=== PATIENT | female | born 1985 | race Caucasian/White ===

== ENCOUNTER → 2020-02-03 09:48 | Outpatient (BNVA) | payer MEDICAID, SELFPAY | PROVIDERS: Family Provider Pediatrics Adolescent Medicine; Visit Provider Nurse Practitioner | DX: J02.9 Acute pharyngitis, unspecified (principal) | CPT/HCPCS: 87071; 87880 ==

== ENCOUNTER → 2021-02-04 12:09 | Outpatient (BNVA) | payer BC, MEDICAID, SELFPAY | PROVIDERS: Family Provider Pediatrics Adolescent Medicine; PCP Nurse Practitioner; Visit Provider Nurse Practitioner | DX: Z12.4 Encounter for screening for malignant neoplasm of cervix (principal); R60.0 Localized edema | CPT/HCPCS: 88175 ==

== ENCOUNTER → 2021-05-09 15:07 | Outpatient (BNVA) | payer BC, MEDICAID, SELFPAY | PROVIDERS: Family Provider Pediatrics Adolescent Medicine; PCP Nurse Practitioner; Visit Provider Nurse Practitioner Family | DX: Z20.822 Contact with and (suspected) exposure to COVID-19 (principal) | CPT/HCPCS: 87635 ==

== ENCOUNTER 2021-05-12 17:34 | Emergency (ER) | payer BC, MEDICAID, SELFPAY ==
[2021-05-12 17:57] VITALS: BP 93/67; PULSE 106; RESP 20; TEMP 37.1; O2SAT 95; BMI 36.1
--- NOTE | 2021-05-12 18:33 | XRR_ITS ---
PROCEDURE INFORMATION: Exam: XR Chest Exam date and time: 05/12/2021 6:33 PM Age: 35 years old Clinical indication: Dyspnea and shortness of breath; Patient HX: Covid +, SOB, chest tightness, sore throat, body aches; Additional info: Covid 19, dyspnea TECHNIQUE: Imaging protocol: XR of the chest. Views: 1 view. COMPARISON: No relevant prior studies available. FINDINGS: Lungs: Patchy ground-glass opacities in the lung bases and central right lung. Pleural spaces: Unremarkable. No pleural effusion. No pneumothorax. Heart/Mediastinum: Unremarkable. No cardiomegaly. Bones/joints: Unremarkable. Soft tissues: Nipple piercings. XR/XR chest 1V portable [id number] IMPRESSION: 1. Multilobar ground-glass opacities, consistent with COVID-19 pneumonia.
--- NOTE | 2021-05-12 18:35 | ED_ITS ---
HPI - SOB/Dyspnea General: Chief Complaint: Shortness of Breath/Dyspnea Stated Complaint: SOB/COVID + Time Seen by Provider: 05/12/21 18:33 History of Present Illness: HPI Narrative: 35-year-old female comes in today with complaints of shortness of breath and COVID-19. Patient reports since April 25 she has been ill. Patient was first treated for a asthma flare with minimal to no relief. Patient was tested on the and it was reported she had a positive COVID-19 test then. Patient appears mildly unwell but not toxic. Patient does have some mild shortness of breath. MD elicited complaint: shortness of breath Pertinent past history: asthma Onset (ago): day(s) Context: recent illness Severity: moderate Exacerbating factors: exertion Relieving factors: rest Known history of: asthma and other (COVID-19) Associated symptoms: Reports nausea Treatment prior to arrival: other (Steroid) Review of Systems General: Reports: 10 or more systems reviewed and unremarkable except in HPI and below Resp: Reports: dyspnea GI: Reports: nausea PFSH ED PFSH: Medical History (Updated 05/12/21 @ 20:09 by TIANA Turner) Asthma Seasonal allergic rhinitis due to pollen Surgical History History of section History of cholecystectomy Family History Other Diabetes Hypertension Denies family history of Chronic kidney disease (CKD) Cancer Social History Smoking and tobacco status: never smoked Second hand smoke exposure: No Smoking risk assessment/counseling performed?: No Alcohol intake: current Alcohol intake frequency: holidays/special occasions only Desire information about alcohol rehabilitation?: No Counseling given: No Desire information about substance/drug rehabilitation?: No Counseling given: No Adopted: No Caregiver/support person: No Lives independently: Yes Household members: children Housing: House Marital status: Single Number of children: 3 service: No Current occupational status: unemployed Current occupational exposures/hazards: No Pets and animals: No History of recent travel: No Current gender identity: Female Female Reproductive History: Date of last menstrual period: 04/04/21 Physical Exam Const: COMMON NORMALS: no acute distress and patient oriented x3 GENERAL APPEARANCE: cooperative HENMT: COMMON NORMALS: normocephalic and Normal external nose present HEAD & SCALP: normal to inspection and normocephalic NOSE: Normal external nose present MOUTH: Normal oral and palatal mucosa present Eye: GENERAL EYE: appearance normal, both eyes and all related structures Neck/C-Spine: COMMON NORMALS: full ROM Chest: COMMONS NORMALS: normal inspection of the chest Resp: COMMON NORMALS: normal respiratory effort EFFORT & INSPECTION: Yes able to speak in complete sentences AUSCULTATION: crackles Laterality: left (Posterior lower) Cardio: COMMON NORMALS: regular rate and regular rhythm RATE: regular rate RHYTHM: regular rhythm GI: COMMON NORMALS: non-tender Back/Pelvis: COMMON NORMALS: thoracic and lumbar spine normal to inspection Extremity: COMMON NORMALS: normal to inspection Neuro: COMMON NORMALS: patient oriented x3 and moves all extremities Psych: COMMON NORMALS: mental status grossly normal and cooperative Skin: COMMON NORMALS: no rashes or lesions noted GENERAL SKIN EXAM: no rashes or lesions noted Course Vital Signs: Vital signs: Vital Signs Temperature 98.8 F 05/12/21 17:57 Pulse Rate 93 05/12/21 20:21 Respiratory Rate 22 H 05/12/21 20:21 Blood Pressure 107/76 05/12/21 20:21 Pulse Oximetry 96 05/12/21 20:21 MDM - SOB/Dyspnea MDM Narrative: Medical decision making narrative: Patient comes in today for concerns of increased shortness of breath. Patient has been ill since 25 April. Patient was seen on the and diagnosed with COVID-19. Patient comes in today due to increasing shortness of breath. On exam patient has some crackles in left lung mills. Skin is warm and dry. Vital signs are normal. Pulse oxygen is running in the low 90s. Differential diagnosis pneumonia due to COVID-19, obesity, asthma exacerbation, respiratory failure. Chest x-ray confirms pneumonia. Laboratory values did note some dehydration. Patient was given 2 L of IV fluids with improvement in symptoms. Patient was prescribed dexamethasone 6 mg twice a day for next 5 days. Patient was also instructed to use her albuterol routinely. And home oxygen was supplied due to patient's mild hypoxia and pneumonia. Patient reported understanding of care plan and need for follow-up or return to the ER. Lab Data: Labs: Lab Results 05/12/21 05/12/21 Range/Units 19:00 19:00 WBC 7.1 (4.0-10.0) 10^3/ uL RBC 5.58 H (4.1-5.3) 10^6/u L Hgb 13.5 (11.5-15.3) g/dL Hct 41.4 (37.0-47.0) % MCV 74.2 L (81-99) fL MCH 24.2 L (28.0-34.0) pg MCHC 32.6 (30.0-36.0) g/dL RDW 14.5 (12.1-15.1) % Plt Count 183 (130-400) 10^3/c mm MPV 10.4 (7.4-10.4) fL Neut % (Auto) 77.9 % Lymph % (Auto) 16.8 % Canadian % (Auto) 4.8 % Eos % (Auto) 0.0 % Baso % (Auto) 0.1 % Neut # (Auto) 5.50 (1.8-7.7) 10^3/u L Lymph # (Auto) 1.2 (0.8-4.8) 10^3/u L Canadian # (Auto) 0.3 (0.2-0.9) 10^3/u L Eos # (Auto) 0.0 (0.0-0.8) 10^3/u L Baso # (Auto) 0.0 (0.0-0.1) 10^3/u L Nucleated RBC % (a uto) 0 % Nucleated RBCs # 0.0 /100WBC Sodium 135 L (136-145) mmol/L Potassium 3.0 L (3.5-5.1) mmol/L Chloride 93 L (98-107) mmol/L Carbon Dioxide 25 (22-29) mmol/L Anion Gap 20.0 H (5-19) BUN 14 (6-20) mg/dL Creatinine 0.9 (0.5-0.9) mg/dL GFR Calculation 71.3 L (90-130) mL/min Glucose 129 H (65-115) mg/dL Calculated Osmolal ity 282 L (285-295) mOsm/k g Calcium 8.5 (8.5-10.5) mg/dL Total Bilirubin 0.5 (0.15-1.2) mg/dL AST 41 H (0-32) U/L ALT 48 H (0-33) U/L Alkaline Phosphata se 126 H (35-105) IU/L Total Protein 6.6 (6.6-8.7) g/dL Albumin 4.1 (3.5-5.2) g/dL Globulin 2.5 (1.3-4.6) g/dL Discharge Plan Discharge Patient Disposition: Home Clinical Impression: Pneumonia due to 2019 novel coronavirus Condition: Stable Prescriptions: New dexamethasone 6 mg tablet 6 mg PO BID Qty: 14 RF: 0 ondansetron HCl 4 mg tablet 4 mg PO Q8H PRN (Reason: nausea and vomiting) Qty: 10 RF: 0 No Action montelukast [Singulair] 10 mg tablet 10 mg PO DAILY Qty: 30 RF: 5 albuterol sulfate [ProAir HFA] 90 mcg/actuation HFA aerosol inhaler 2 puff INHALATION QID PRN (Reason: shortness of breath or wheezing) Qty: 18 RF: 5 loratadine [Claritin] 10 mg tablet 10 mg PO DAILY 30 Days Qty: 30 RF: 5 Dulera 100-5 mcg/actuation HFA aerosol inhaler 2 puff inhalation Q12H Qty: 8.8 RF: 5 fluoxetine [Prozac] 20 mg capsule 20 mg PO DAILY Qty: 30 RF: 2 hydrochlorothiazide 12.5 mg capsule 12.5 mg PO DAILY Qty: 30 RF: 2 Discharge Orders: Discharge ED (Routine); Ordered 05/12/21 Ordered By: Rod Longo Other Ambulatory Orders: DME: Oxygen (Order) Location: None Selected Ordered By: Rod Longo Referrals: Anca Garcia FNPEstherC [Primary Care Provider] - Discharge Diet: Usual diet Discharge Activity: Increase activity as tolerated Patient Instructions: Viral Pneumonia (ED), Opioid Safety Activity Restrictions/Additional Instructions: Drink plenty of fluids. Use acetaminophen and ibuprofen for discomfort. Act ivity as tolerated. Use albuterol inhaler 2 puffs every 4 hours for shortness of breath or wheezing. Take dexamethasone 6 mg twice a day for the next 5 to 7 days. Make sure to stay well-hydrated. Eat a healthy diet. Follow-up with primary care in 1 week for recheck. Use home oxygen 2 L as needed for shortness of breath and at bedtime. Return to the emergency department for worsening symptoms or new concerns. Coding Level of Care Code ED Gasateria Attendant for Raphael Fierro Exam Comprehensive
[2021-05-12] MEDS: ondansetron 2 mg/ML SDV 2 mL 4 MG IVP (18:53)
[2021-05-12] MEDS: dexamethasone 4 mg/mL INJ 10 MG IVP (18:54)
[2021-05-12] MEDS: sodium chloride 0.9% 1,000 ML 999 ML IV (18:54)
[2021-05-12 19:02] VITALS: BP 93/74; PULSE 95; RESP 27; O2SAT 93
[2021-05-12 19:09] LABS: Basophils % 0.1 %; Hematocrit 41.4 % (37.0-47.0); Hemoglobin 13.5 g/dL (11.5-15.3); Lymphocytes # 1.2 10^3/uL (0.8-4.8); Lymphocytes % 16.8 %; Mean Corpuscular HGB Conc 32.6 g/dL (30.0-36.0); Mean Corpuscular Hemoglobin 24.2 pg (28.0-34.0); Mean Corpuscular Volume 74.2 fL (81-99); Mean Platelet Volume 10.4 fL (7.4-10.4); Monocytes # 0.3 10^3/uL (0.2-0.9); Monocytes % 4.8 %; Neutrophils % 77.9 %; Nucleated Red Blood Cells % 0 %; Platelet Count 183 10^3/cmm (130-400); Red Blood Count 5.58 10^6/uL (4.1-5.3); Red Cell Distribution Width 14.5 % (12.1-15.1); White Blood Count 7.1 10^3/uL (4.0-10.0)
[2021-05-12 19:37] LABS: Alanine Aminotransferase 48 U/L (0-33); Albumin Level 4.1 g/dL (3.5-5.2); Alkaline Phosphatase 126 IU/L (35-105); Aspartate Amino Transferase 41 U/L (0-32); Blood Urea Nitrogen 14 mg/dL (6-20); Calcium 8.5 mg/dL (8.5-10.5); Carbon Dioxide 25 mmol/L (22-29); Chloride 93 mmol/L (98-107); Globulin 2.5 g/dL (1.3-4.6); Glomerular Filtration Rate 71.3 mL/min (90-130); Glucose 129 mg/dL (65-115); Osmolality Calculated 282 mOsm/kg (285-295); Sodium 135 mmol/L (136-145); Total Bilirubin 0.5 mg/dL (0.15-1.2); Total Protein 6.6 g/dL (6.6-8.7)
[2021-05-12] MEDS: lactated ringers 1,000 ML 999 ML IV (20:20)
[2021-05-12 20:21] VITALS: BP 107/76; PULSE 93; RESP 22; O2SAT 96
[2021-05-12] MEDS: ketorolac 30 mg/mL INJ 15 MG IVP (20:25)
[2021-05-12 21:15] VITALS: BP 102/81; PULSE 96; RESP 22; O2SAT 96
[2021-05-12 21:18] VITALS: BP 108/86; PULSE 96; RESP 22; O2SAT 96
== END 2021-05-12 21:18 | disposition home or self-care (01) ==
PROVIDERS: Emergency Provider Nurse Practitioner Family; PCP Nurse Practitioner
DX: U07.1 COVID-19 (principal); J12.82 Pneumonia due to coronavirus disease 2019; J45.909 Unspecified asthma, uncomplicated; E66.9 Obesity, unspecified; Z68.36 Body mass index [BMI] 36.0-36.9, adult
CPT/HCPCS: 71045; 80053; 85025; 96361; 96374; 96375; 99284; J1100; J1885; J2405; J7030

== ENCOUNTER → 2021-06-02 15:49 | Outpatient (BNVA) | payer BC, MEDICAID, SELFPAY | PROVIDERS: PCP Nurse Practitioner; Visit Provider Nurse Practitioner | DX: U07.1 COVID-19 (principal); J12.82 Pneumonia due to coronavirus disease 2019 | CPT/HCPCS: 71046 ==

== ENCOUNTER → 2021-07-19 09:11 | Outpatient (BNVA) | payer BC, MEDICAID, SELFPAY | PROVIDERS: PCP Nurse Practitioner; Visit Provider Nurse Practitioner | DX: U07.1 COVID-19 (principal); J12.82 Pneumonia due to coronavirus disease 2019; J45.909 Unspecified asthma, uncomplicated | CPT/HCPCS: 71046 ==

== ENCOUNTER → 2021-08-05 10:19 | Outpatient (BNVA) | payer BC, MEDICAID, SELFPAY | PROVIDERS: PCP Nurse Practitioner; Visit Provider Nurse Practitioner Family | DX: J02.9 Acute pharyngitis, unspecified (principal); R50.9 Fever, unspecified; Z20.822 Contact with and (suspected) exposure to COVID-19 | CPT/HCPCS: 87071; 87635; 87880 ==

== ENCOUNTER → 2021-11-09 11:54 | Outpatient (BNVA) | payer BC, MEDICAID, SELFPAY | PROVIDERS: PCP Nurse Practitioner; Visit Provider Family Medicine Adult Medicine | DX: G44.209 Tension-type headache, unspecified, not intractable (principal); J45.20 Mild intermittent asthma, uncomplicated; R63.4 Abnormal weight loss; E66.9 Obesity, unspecified; Z68.38 Body mass index [BMI] 38.0-38.9, adult; R11.2 Nausea with vomiting, unspecified; R42 Dizziness and giddiness | CPT/HCPCS: 80053; 83036; 84443; 85025 ==

== ENCOUNTER → 2021-11-16 15:39 | Outpatient (BNVA) | payer BC, MEDICAID, SELFPAY | PROVIDERS: PCP Nurse Practitioner; Visit Provider Nurse Practitioner Family | DX: J02.9 Acute pharyngitis, unspecified (principal); Z20.822 Contact with and (suspected) exposure to COVID-19 | CPT/HCPCS: 87071; 87635; 87880 ==

== ENCOUNTER → 2021-11-21 14:29 | Outpatient (BNVA) | payer BC, MEDICAID, SELFPAY | PROVIDERS: PCP Nurse Practitioner; Visit Provider Nurse Practitioner Family | DX: D64.9 Anemia, unspecified (principal); R21 Rash and other nonspecific skin eruption | CPT/HCPCS: 82728; 83550; 85025 ==

== ENCOUNTER 2021-12-12 11:24 | Emergency (ER) | payer BC, MEDICAID, SELFPAY ==
[2021-12-12 11:34] VITALS: BP 120/81; PULSE 97; RESP 18; TEMP 36.7; O2SAT 99; BMI 34.2
[2021-12-12 11:40] VITALS: BP 120/80; PULSE 97; RESP 18; TEMP 36.6; O2SAT 99
--- NOTE | 2021-12-12 12:18 | W.ED.EXTPRO ---
Documented by User: ADOLFO Goodman 12/12/21 13:31 HPI - Extremity Problem General: Chief complaint: Extremity Problem,Nontraumatic Stated complaint: right hip pain Time Seen by Provider: 12/12/21 11:41 Source: patient Mode of arrival: ambulatory Limitations: no limitations History of Present Illness: Patient is a 36-year-old female who presents to ED today with complaint of right inguinal/anterior hip pain that has been present daily for several years. She states that sometimes pain will seem to flareup and last for 2 to 3 weeks and then subside back down to her baseline but states pain is always there. She states she has been evaluated through PCP with x-rays and is even had physical therapy without any relief. She states they have tried muscle relaxers previously without any relief. She has been trying [id number] Tylenol and/or Motrin without relief. She feels like pain is worse with certain movements of her leg. He is not having any numbness or tingling. No radiation into her abdomen or pelvis. No radiation down into her lower extremity. She has not noticed any color or temperature changes to the extremity. MD Complaint: extremity pain (R inguinal region) Onset (ago): year(s) Pain Consistency: constant Location: right Radiation: none Relieving factors: movement Exacerbating factors: nothing Associated symptoms: Reports no associated symptoms; Deny chest pain, fever(s) or rash Review of Systems Const: Denies: fever(s), chills, body aches, fatigue or malaise Card: Denies: chest pain Resp: Denies: dyspnea GI: Denies: abdominal pain, nausea, vomiting or change in bowel habits : Denies: flank pain, difficulty voiding, dysuria, urinary frequency, urinary urgency, urinary hesitancy, vaginal odor, vaginal bleeding, vaginal discharge, metrorrhagia, pelvic pain or dyspareunia Musc: Reports: joint pain (R inguinal/anterior hip); Denies: neck pain, back pain, joint swelling, joint redness, joint warmth, limited range of motion or decrease in muscle mass Skin/Breast: Denies: rash, new lesions or changes in skin color Neuro: Denies: numbness in extremities, weakness in extremities, sensory changes or difficulty walking [facility] ED PFSH: Medical History Asthma Dizziness Muscle tension headache Nausea & vomiting Seasonal allergic rhinitis due to pollen Weight loss Surgical History History of section History of cholecystectomy Family History Other Diabetes Hypertension Denies family history of Chronic kidney disease (CKD) Cancer Social History Smoking and tobacco status: never smoked Second hand smoke exposure: No Smoking risk assessment/counseling performed?: No Alcohol intake: current Alcohol intake frequency: holidays/special occasions only Desire information about alcohol rehabilitation?: No Counseling given: No Desire information about substance/drug rehabilitation?: No Counseling given: No Adopted: No Caregiver/support person: No Lives independently: Yes Household members: children Housing: House Marital status: Single Number of children: 3 service: No Current occupational status: unemployed Current occupational exposures/hazards: No Pets and animals: No History of recent travel: No Current gender identity: Female Female Reproductive History: Date of last menstrual period: 12/04/21 Physical Exam Const: COMMON NORMALS: no acute distress, patient oriented x3, no limitations, alert and well nourished GENERAL APPEARANCE: cooperative GI: COMMON NORMALS: Normal to inspection, nondistended, normoactive bowel sounds present, Soft to palpation, non-tender, No hepatosplenomegaly present and no masses INSPECTION: Yes normal to inspection PALPATION: Yes Soft to palpation and Yes No hepatosplenomegaly present : COMMON NORMALS: Yes no CVA tenderness BLADDER/KIDNEY EXAM: Yes no CVA tenderness Back/Pelvis: COMMON NORMALS: no CVA tenderness, thoracic and lumbar spine normal to inspection, no thoracic nor lumbar tenderness, thoraco-lumbar ROM normal and straight leg raise negative bilaterally Extremity: COMMON NORMALS: capillary refill normal, no joint enlargement, no clubbing, cyanosis or edema, no calf tenderness and no pedal edema NARRATIVE EXTREMITY EXAM: pt has tenderness to R inguinal region; no swelling/redness; femoral pulses normal; extremity is normal color/temp with normal distal pulses/cap refill; no sensory loss; she reports pain with hip flexion and hip abduction Neuro: COMMON NORMALS: patient oriented x3, moves all extremities, no focal motor deficits, no sensory deficits noted and gait normal SENSORIUM/ORIENTATION: Yes alert MOTOR EXAM: 5/5 motor strength present throughout Skin: COMMON NORMALS: no rashes or lesions noted GENERAL SKIN EXAM: no rashes or lesions noted Course Vital Signs: Vital signs: Vital Signs Temperature 98 F 12/12/21 11:40 Pulse Rate 97 12/12/21 11:40 Respiratory Rate 18 12/12/21 11:40 Blood Pressure 120/80 12/12/21 11:40 Pulse Oximetry 99 12/12/21 11:40 MDM - Extremity (Nontraumatic) Medical Decision Making Patient is a 36-year-old female here for complaints of right inguinal/anterior hip pain for years. She states her pain today is acute on chronic. She has a follow-up appoint with primary care on Sunday. Patient is not having any sensory deficits. She has no evidence of vascular compromise. DDx-nerve compression/entrapment (patient has had 3 previous C-sections so this certainly could be a possibility), ligamentum teres/labral tear/injury or other musculoskeletal etiology, less likely something like an iliopsoas bursitis given the chronicity, no evidence for aortoiliac insufficiency, no concern for emergent processes such as osteonecrosis, bone tumor, septic arthritis based on history. At this point will treat with anti-inflammatories and steroids and have her follow-up with PCP at her scheduled appointment this week. Discharge Plan Discharge Patient Disposition: Home Clinical Impression: Chronic pain of right inguinal region Condition: Stable Prescriptions: New diclofenac sodium 50 mg tablet,delayed release (DR/EC) 50 mg PO Q12H PRN (Reason: pain) Qty: 20 0RF Medrol (Elias) 4 mg tablets,dose pack See Rx Instructions .ROUTE .COMPLEX Qty: 21 0RF Rx Instructions: orally per package directions Discontinued meloxicam 7.5 mg tablet 7.5 mg PO DAILY Qty: 20 0RF prednisone 20 mg tablet 20 mg PO BID Qty: 6 0RF No Action ondansetron 4 mg tablet,disintegrating 4 mg PO Q8H PRN (Reason: nausea and vomiting) Qty: 20 0RF fluoxetine 40 mg capsule 40 mg PO DAILY Qty: 30 5RF triamcinolone acetonide 0.1 % ointment 1 applic topical BID Qty: 30 0RF Rx Instructions: large area, arms, buttocks, face albuterol sulfate [ProAir HFA] 90 mcg/actuation HFA aerosol inhaler 2 puff INHALATION QID PRN (Reason: shortness of breath or wheezing) Qty: 18 5RF montelukast [Singulair] 10 mg tablet 10 mg PO DAILY Qty: 30 5RF hydrochlorothiazide 12.5 mg capsule 12.5 mg PO DAILY Qty: 30 5RF ferrous gluconate 324 mg (38 mg iron) tablet 324 mg PO TID Qty: 30 2RF Discharge Orders: Discharge ED (Routine); Ordered 12/12/21 Ordered By: Meg Fleming Referrals: Anca Garcia FNP-C [Primary Care Provider] - Coding Level of Care Code ED Credit Administration Specialist for Chg Fwd Exam Detailed Documented by User: Shayne Solis MD 12/14/21 19:07 HPI - Extremity Problem General: Chief complaint: Extremity Problem,Nontraumatic Stated complaint: right hip pain Time Seen by Provider: 12/12/21 11:41 [facility] ED PFSH: Medical History Asthma Dizziness Muscle tension headache Nausea & vomiting Seasonal allergic rhinitis due to pollen Weight loss Surgical History History of section History of cholecystectomy Family History Other Diabetes Hypertension Denies family history of Chronic kidney disease (CKD) Cancer Social History Smoking and tobacco status: never smoked Second hand smoke exposure: No Smoking risk assessment/counseling performed?: No Alcohol intake: current Alcohol intake frequency: holidays/special occasions only Desire information about alcohol rehabilitation?: No Counseling given: No Desire information about substance/drug rehabilitation?: No Counseling given: No Adopted: No Caregiver/support person: No Lives independently: Yes Household members: children Housing: House Marital status: Single Number of children: 3 service: No Current occupational status: unemployed Current occupational exposures/hazards: No Pets and animals: No History of recent travel: No Current gender identity: Female Course Vital Signs: Vital signs: Vital Signs Temperature 98 F 12/12/21 11:40 Pulse Rate 97 12/12/21 11:40 Respiratory Rate 18 12/12/21 11:40 Blood Pressure 120/80 12/12/21 11:40 Pulse Oximetry 99 12/12/21 11:40 MDM - Extremity (Nontraumatic) Medical Decision Making Patient is a 36-year-old female here for complaints of right inguinal/anterior hip pain for years. She states her pain today is acute on chronic. She has a follow-up appoint with primary care on Sunday. Patient is not having any sensory deficits. She has no evidence of vascular compromise. DDx-nerve compression/entrapment (patient has had 3 previous C-sections so this certainly could be a possibility), ligamentum teres/labral tear/injury or other musculoskeletal etiology, less likely something like an iliopsoas bursitis given the chronicity, no evidence for aortoiliac insufficiency, no concern for emergent processes such as osteonecrosis, bone tumor, septic arthritis based on history. At this point will treat with anti-inflammatories and steroids and have her follow-up with PCP at her scheduled appointment this week. I have reviewed this documentation from Meg MATA. Shayne Solis MD Emergency Medicine Discharge Plan Discharge Patient Disposition: Home Clinical Impression: Chronic pain of right inguinal region Condition: Stable Prescriptions: New diclofenac sodium 50 mg tablet,delayed release (DR/EC) 50 mg PO Q12H PRN (Reason: pain) Qty: 20 0RF Medrol (Elias) 4 mg tablets,dose pack See Rx Instructions .ROUTE .COMPLEX Qty: 21 0RF Rx Instructions: orally per package directions Discontinued meloxicam 7.5 mg tablet 7.5 mg PO DAILY Qty: 20 0RF prednisone 20 mg tablet 20 mg PO BID Qty: 6 0RF No Action ondansetron 4 mg tablet,disintegrating 4 mg PO Q8H PRN (Reason: nausea and vomiting) Qty: 20 0RF fluoxetine 40 mg capsule 40 mg PO DAILY Qty: 30 5RF triamcinolone acetonide 0.1 % ointment 1 applic topical BID Qty: 30 0RF Rx Instructions: large area, arms, buttocks, face albuterol sulfate [ProAir HFA] 90 mcg/actuation HFA aerosol inhaler 2 puff INHALATION QID PRN (Reason: shortness of breath or wheezing) Qty: 18 5RF montelukast [Singulair] 10 mg tablet 10 mg PO DAILY Qty: 30 5RF hydrochlorothiazide 12.5 mg capsule 12.5 mg PO DAILY Qty: 30 5RF ferrous gluconate 324 mg (38 mg iron) tablet 324 mg PO TID Qty: 30 2RF Discharge Orders: Discharge ED (Routine); Ordered 12/12/21 Ordered By: Meg Fleming Referrals: Anca Garcia, WOMEN'S MINISTRY DIRECTOR-C [Primary Care Provider] - Coding Level of Care Code ED Credit Administration Specialist for Chg Fwd Exam Detailed
== END 2021-12-12 12:49 | disposition home or self-care (01) ==
PROVIDERS: Emergency Provider Physician Assistant; PCP Nurse Practitioner
DX: G89.29 Other chronic pain (principal); M25.551 Pain in right hip
CPT/HCPCS: 99281

== ENCOUNTER 2021-12-16 14:54 | Outpatient (CLI) | payer BC, MEDICAID, SELFPAY ==
--- NOTE | 2021-12-16 15:00 | XR_ITS ---
WS: [id number] Exam: XR lumbar spine 2-3V* [id number] Date/Time of Exam: 12/16/2021 3:01 PM Reason For Exam: M54.50 - Low back pain, unspecified No fracture or dislocation. Posterior elements are intact. Disc spaces are preserved. Mild levoscolio sis. XR/XR lumbar spine 2-3V* [id number] IMPRESSION: 1. Mild levoscoliosis. No other significant finding.
== END 2021-12-16 14:55 | disposition home or self-care (01) ==
PROVIDERS: PCP Nurse Practitioner; Visit Provider Nurse Practitioner
DX: M54.50 Low back pain, unspecified (principal); M79.604 Pain in right leg; M41.86 Other forms of scoliosis, lumbar region
CPT/HCPCS: 72100

== ENCOUNTER → 2021-12-20 09:04 | Outpatient (BNVA) | payer BC, MEDICAID, SELFPAY | PROVIDERS: PCP Nurse Practitioner; Visit Provider Nurse Practitioner | DX: D64.9 Anemia, unspecified (principal) | CPT/HCPCS: 82607; 83540; 85025 ==

== ENCOUNTER → 2021-12-29 11:33 | Outpatient (BNVA) | payer BC, MEDICAID, SELFPAY | PROVIDERS: PCP Nurse Practitioner; Visit Provider Nurse Practitioner Family | DX: D64.9 Anemia, unspecified (principal); L50.8 Other urticaria | CPT/HCPCS: 85025; 85651; 86140; 86160; 86162; 86235; 86255; 86376 ==

== ENCOUNTER → 2022-01-16 15:07 | Outpatient (BNVA) | payer BC, MEDICAID, SELFPAY | PROVIDERS: PCP Nurse Practitioner; Referring Provider Nurse Practitioner; Visit Provider Obstetrics & Gynecology | DX: N92.0 Excessive and frequent menstruation with regular cycle (principal) | CPT/HCPCS: 83001; 84146; 84443; 85025 ==

== ENCOUNTER 2022-02-06 15:14 | Outpatient (CLI) | payer BC, MEDICAID, SELFPAY ==
--- NOTE | 2022-02-06 15:45 | US_ITS ---
WS: [id number] TRANSABDOMINAL PELVIC AND TRANSVAGINAL PELVIC ULTRASOUND HISTORY: N92.0 - Excessive and frequent menstruation with regular ... COMPARISON: 08/21/2006 Uterus: 12.6 cm x 5.9 cm x 3.9 cm. Markedly enlarged anteverted uterus. No fibroid or mass identified . Nabothian cysts within the cervix. Endometrium: 0.7 cm. Limited but no abnormality identified. Right ovary: 2.9 cm x 2.2 cm x 1.8 cm. Normal size ovary with normal Doppler. No mass. Left ovary: 2.4 cm x 2.5 cm x 1.1 cm. Normal size ovary with normal Doppler. Small follicle. No free fluid. US/US pelvic with transvaginal IMPRESSION: 1. Suboptimal evaluation. Difficult imaging of the uterus and adnexa. 2. Marked enlargement of uterus but no fibroid. 3. The visualized endometrium does appear normal but limited.
== END 2022-02-06 15:15 | disposition home or self-care (01) ==
PROVIDERS: PCP Nurse Practitioner; Visit Provider Obstetrics & Gynecology
DX: N92.0 Excessive and frequent menstruation with regular cycle (principal)
CPT/HCPCS: 76830; 76856

== ENCOUNTER → 2022-02-14 08:11 | Outpatient (BNVA) | payer BC, MEDICAID, SELFPAY | PROVIDERS: PCP Nurse Practitioner; Visit Provider Internal Medicine | DX: R76.8 Other specified abnormal immunological findings in serum (principal); R21 Rash and other nonspecific skin eruption; Z11.59 Encounter for screening for other viral diseases; L50.8 Other urticaria; M54.50 Low back pain, unspecified; Z11.1 Encounter for screening for respiratory tuberculosis | CPT/HCPCS: 36415; 82550; 82784; 83516; 83735; 85613; 85730; 86146; 86147; 86431; 86480; 86704; 86803; 87340; 99204 ==

== ENCOUNTER → 2022-03-01 12:41 | Outpatient (BNVA) | payer BC, MEDICAID, SELFPAY | PROVIDERS: PCP Nurse Practitioner; Visit Provider Internal Medicine | DX: M35.00 Sjogren syndrome, unspecified (principal); E61.1 Iron deficiency; Z79.899 Other long term (current) drug therapy; R21 Rash and other nonspecific skin eruption; M54.9 Dorsalgia, unspecified | CPT/HCPCS: 99214 ==

== ENCOUNTER → 2022-03-17 08:56 | Outpatient (BNVA) | payer BC, MEDICAID, SELFPAY | PROVIDERS: PCP Nurse Practitioner; Visit Provider Obstetrics & Gynecology | DX: Z01.818 Encounter for other preprocedural examination (principal); N92.0 Excessive and frequent menstruation with regular cycle | CPT/HCPCS: 80053; 81000; 85025; 86850; 86900 ==

== ENCOUNTER 2022-03-22 11:29 | Day surgery (SDC) | payer BC, MEDICAID, SELFPAY ==
[2022-03-17 11:00] VITALS: BMI 36.1
--- NOTE | 2022-03-17 17:10 | P.ANESASSM_ITS ---
Pre-Anesthetic Assessment Height/Weight: Height 1.52 m Weight 83.915 kg Operation Date: 03/22/22 14:05 Proposed Procedures p Endometrial ablation 00472/N92.0(Not Applicable) - Mike Richter MD Familial anesthetic complications: None Was Beta Madelin taken within 24 hours: N/A Was Clonidine taken within 24 hours: N/A Social No alcohol and No tobacco Exam alert, oriented x 3, clear to auscultation bilaterally and regular rate & rhythm Airway Submandibular: within normal limits Cervical ROM: within normal limits Mallampati: Class II Dentition: full History/ROS No significant complaints Pulmonary Asthma Sjorgens syndrome CV/HEM None reported None reported Hepatic None reported GI None reported Metabolic None reported Musc/skel None reported Neuropsych None reported Anesthetic Plan ASA status: 2 Anesthesia: Anesthesia Evaluation and General Other: We discussed risk and benefits of general anesthesia including PONV, sore throat (sometimes severe), corneal abrasion, positioning and peripheral nerve injuries, life threatening allergic reaction, post operative ICU admission requiring prolonged intubation, stroke, heart attack, , and rare incidences of recall. Patient consents to proceed with general anesthesia. Plan GETA with ophthalmic lubricant for dry eyes associated with Sjorgens syndrome Risk of > 500 ml blood loss (7ml/kg in children): No Medications/Allergies Home Medications Medication Instructions Recorded Confirmed Last Taken Type famotidine 40 mg tablet (Pepcid) 40 mg PO DAILY #30 tab 01/03/22 03/17/22 Unknown Rx acetaminophen 500 mg tablet 1,500 mg PO Q6H PRN tab 02/14/22 03/17/22 Unknown History (Tylenol Extra Strength) ferrous gluconate 324 mg (38 mg 324 mg PO BID #60 tab 02/16/22 03/17/22 Unknown Rx iron) tablet montelukast 10 mg tablet 10 mg PO DAILY #30 tab 02/16/22 03/17/22 Unknown Rx (Singulair) albuterol sulfate 90 mcg/actuation 2 puff INHALATION QID PRN #18 gm 03/01/22 03/17/22 Unknown Rx aerosol inhaler (ProAir HFA) cetirizine 10 mg tablet (Zyrtec) 10 mg PO DAILY #30 tab 03/02/22 03/17/22 U nknown Rx amoxicillin 875 mg-potassium 1 tab PO BID #20 tab 03/10/22 03/17/22 Unknown Rx clavulanate 125 mg tablet mometasone-formoterol HFA 50 mcg-5 2 puff INHALATION Q12H 03/17/22 03/17/22 Unknown History mcg/actuation aerosol inhaler (Dulera) Allergies Allergy/AdvReac Type Severity Reaction Status Date / Time aspirins Allergy Severe Quit Uncoded 03/17/22 10:59 breathing PFSH Anesthesia Medical History Asthma Back pain of thoracolumbar region Iron deficiency Muscle tension headache Seasonal allergic rhinitis due to pollen Surgical History H/O tubal ligation performed during section History of section History of cholecystectomy Family History Mother Diabetes Stroke Thyroid condition Father Hyperlipidemia Hypertension Heart disease Grandmother Thyroid condition maternal Grandfather Heart disease paternal Other Cancer Lupus Rheumatoid arthritis Denies family history of Colon cancer Ovarian cancer Clotting disorder Chronic kidney disease (CKD) Breast cancer Anesthesia complication Bleeding disorder Uterine cancer Female Reproductive History Date of last menstrual period: 12/04/21 Data Anesthesia Cardiac Studies: No Data to Display
[2022-03-22] VITALS (9 sets, daily range): BP systolic 111–139; BP diastolic 70–95; PULSE 92–124; RESP 17–20; TEMP 36.2–36.6; O2SAT 94–99
[2022-03-22 12:29] LABS: OR HCG Qualitative Urine Negative (Negative)
[2022-03-22] MEDS: sodium chloride 0.9% 500 ML IV (13:16)
[2022-03-22] MEDS: scopolamine 1.5 Patch 1 PATCH TRANSDERMA (13:16)
--- NOTE | 2022-03-22 13:33 | P.ANESASSM_ITS ---
Pre-Anesthetic Assessment Height/Weight: Height 1.52 m Weight 83.915 kg Temp Pulse Resp BP Pulse Ox 97.5 F L 92 18 125/95 98 03/22/22 12:05 03/22/22 12:05 03/22/22 12:05 03/22/22 12:05 03/22/22 12:05 Preop Diagnosis: Menorrhagia Operation Date: 03/22/22 14:15 Proposed Procedures p Hysteroscopy w/ Ablation w/ Novasure(Not Applicable) - Mike Richter MD s Dilation And Curettage (D&C)(Not Applicable) - Mike Richter MD Last intake: Intake Last Liquid Date 03/21/22 Last Liquid Time 21:00 Last Solid Date 03/21/22 Last Solid Time 19:00 Medications/Allergies Home Medications Medication Instructions Recorded Confirmed Last Taken Type famotidine 40 mg tablet (Pepcid) 40 mg PO DAILY #30 tab 01/03/22 03/22/22 03/21/22 Rx acetaminophen 500 mg tablet 1,500 mg PO Q6H PRN tab 02/14/22 03/22/22 03/21/22 21:00 History (Tylenol Extra Strength) ferrous gluconate 324 mg (38 mg 324 mg PO BID #60 tab 02/16/22 03/22/22 03/21/22 Rx iron) tablet montelukast 10 mg tablet 10 mg PO DAILY #30 tab 02/16/22 03/22/22 03/21/22 Rx (Singulair) albuterol sulfate 90 mcg/actuation 2 puff INHALATION QID PRN #18 gm 03/01/22 03/22/22 03/21/22 Rx aerosol inhaler (ProAir HFA) cetirizine 10 mg tablet (Zyrtec) 10 mg PO DAILY #30 tab 03/02/22 03/22/22 03/21/22 Rx amoxicillin 875 mg-potassium 1 tab PO BID #20 tab 03/10/22 03/17/22 Unknown Rx clavulanate 125 mg tablet mometasone-formoterol HFA 50 mcg-5 2 puff INHALATION Q12H 03/17/22 03/22/22 03/21/22 History mcg/actuation aerosol inhaler (Dulera) Allergies Allergy/AdvReac Type Severity Reaction Status Date / Time aspirins Allergy Severe Quit Uncoded 03/17/22 10:59 breathing [facility] Anesthesia Medical History Asthma Back pain of thoracolumbar region Iron deficiency Muscle tension headache Seasonal allergic rhinitis due to pollen Surgical History H/O tubal ligation performed during section History of section History of cholecystectomy Family History Mother Diabetes Stroke Thyroid condition Father Hyperlipidemia Hypertension Heart disease Grandmother Thyroid condition maternal Grandfather Heart disease paternal Other Cancer Lupus Rheumatoid arthritis Denies family history of Colon cancer Ovarian cancer Clotting disorder Chronic kidney disease (CKD) Breast cancer Anesthesia complication Bleeding disorder Uterine cancer Female Reproductive History Date of last menstrual period: 12/04/21 Data Anesthesia Cardiac Studies: No Data to Display
[2022-03-22] MEDS: sodium chloride 0.9% 1,000 ML 30 ML IV (13:39)
--- NOTE | 2022-03-22 14:28 | P.ANESUD_ITS ---
Pre-Anesthetic Update Pre-Anesthetic Assessment: Date of Surgery/Procedure: 03/22/22 Preop Yamile gnosis: Menorrhagia Proposed Procedure: Operation Date: 03/22/22 14:15 Proposed Procedures p Hysteroscopy w/ Ablation w/ Novasure(Not Applicable) - Mike Richter MD s Dilation And Curettage (D&C)(Not Applicable) - Mike Richter MD Any changes to Pre-Anesthetic Assessment?: No Last Intake: Intake Last Liquid Date 03/21/22 Last Liquid Time 21:00 Last Solid Date 03/21/22 Last Solid Time 19:00 Vitals: Temperature 97.5 F L 03/22/22 12:05 Temperature Source Temporal Artery S can 03/22/22 12:05 Pulse Rate 92 03/22/22 12:05 Pulse Rhythm 03/22/22 12:17 Pulse Strength 3+ Normal 03/22/22 12:17 Respiratory Rate 18 03/22/22 12:05 Blood Pressure 125/95 03/22/22 12:05 Blood Pressure Ester n 105 03/22/22 12:05 Pulse Oximetry 98 03/22/22 12:05 Oxygen Delivery Me thod 03/22/22 12:17 Exam: Pre-Anes Outpt Exam: alert, oriented x 3, clear to auscultation bilaterally and regular rate & rhythm Cardiac Studies: No Data to Display
--- NOTE | 2022-03-22 15:30 | W.PM.OPSUD ---
Surgery/Procedure H&P Update DATE OF PROCEDURE: March 22, 2022 DATE H&P PERFORMED: 03/17/22 H&P UPDATE INFORMATION: I have reviewed H&P completed within last 30 days, I have examined patient prior to procedure and No changes to prior documentation PREOP DIAGNOSIS: Menorrhagia PLANNED PROCEDURE: Operation Date: 03/22/22 14:15 Proposed Procedures p Hysteroscopy w/ Ablation w/ Novasure(Not Applicable) - Mike Richter MD s Dilation And Curettage (D&C)(Not Applicable) - Mike Richter MD
--- NOTE | 2022-03-22 16:42 | P.OP_ITS ---
Operative Report Date of procedure: March 22, 2022 Pre-op diagnosis: Preop Diagnosis Menorrhagia Post-op diagnosis: Same as above Post-op findings: Multiple endometrial polyp Procedure done: Hysteroscopy. Dilation and curettage. Endometrial ablation. Specimens removed/disposition: Endometrial curettings Surgeon: Mike Richter MD Estimated blood loss (mL): 10 IV fluids (mL): 100 Complications: None Findings: Multiple polyps Procedure: Ms. Mcnamara is a 36 year-old female who presented to the office for abnormal uterine bleeding. Ultrasound imaging did not reveal any submucosal fibroids or polyps. An endometrial biopsy was done which was normal. Conservative therapies including TXA, OCP, and Mirena were discussed/tried. Ultimately, a plan was made to proceed with a novosure endometrial ablation. Risks, potential complications, and benefits were discussed with Ms. Mcnamara and consent was signed prior to the OR. After informed consent was assure, this is a 36-year-old patient who has completed childbearing; and she has a tubal ligation. The patient desired control for abnormal uterine bleeding. She declined other more conservative options such as oral contraceptive pills and Mirena intrauterine device. The patient desired an ablation. Risks of the surgery, which include risk of infection, bleeding, urine perforation; were discussed in detail with the patient. Patient was also informed that is not advised after having an ablation procedure done. Patient verbalized understanding of the risks, and informed consent was obtained. The patient was taken to the operating room where general anesthesia was administered. The patient was examined under anesthesia and found to have a normal uterus with normal adnexa. She was placed in the dorsal lithotomy position and prepped and draped in sterile fashion. A weighted speculum was placed in the vagina, and the anterior lip of cervix was grasped with the single toothed tenaculum. The uterus was then gently sounded to 10 cm. The length of the cervical canal was 4 cm and the canal was dilated to 8 mm with Esther?s dialators. and the 2.7 cm hysteroscope advanced gently to the uterine fundus while visualizing the monitor. Survey of the uterine cavity showed: fundus normal proliferative endometrium; left and right ostiums visualized, anterior wall with proliferative endometrium; and posterior wall with proliferative endometrium; the endocervical canal is normal. Endometrial polyps were noted. The hysteroscope was removed. A curette was advanced gently to the uterine fundus and rotated to clear the uterus. A sharp curettage wan then performed until a gritty texture was noted. There was minimal bleeding noted. The sterile NovaSure? Disposable Device package was opened, connected and tested per instructions. It was found to be working properly. The device?s array is completely enclosed by the external sheath and the WIDTH dial reads approximately 0.5 cm. The appropriate cavity length settings was set 6.0 cm. Adjust and lock the cavity length setting feature on the Disposable Device to the value obtained. The Cervical Collar was fully retracted to its proximal position. Confirmed that the cervix was dilated to 8.0 mm. While maintaining a slight traction on the tenaculum to minimize the angle of the uterus. In-line with the axis of the uterus the Disposable Device was inserted transcervically into the uterine cavity and advance the device until the distal end of the sheath touched the fundus. The handles were slowly squeezed up to the point of increased resistance without locking it. The WIDTH dial read 3.7 cm. The Disposable Device handles were slowly squeezed together while gently moving the Disposable Device -0.5 cm to and from the fundus and rotating the handle of the Disposable Device 45? counterclockwise from the vertical plane and 45? clockwise from the vertical plane until the handles locked and confirmed the with dial read greater than 2.5 cm. The Disposable Device was gently moved using anterior, posterior and lateral movements. The Disposable Device was slightly pulled back until the WIDTH dial reading reduced by approximately 0.2-0.5 cm. While holding the tenaculum, the Disposable Device was advance to the fundus, maintaining slight forward pressure. The WIDTH dial read to the previous measurement. The Cervical Collar was slide forward until it forms a seal against the external cervical os. The value indicated on the width dial into the NovaSure? RF Controller. In Automatic Mode the Cavity Integrity Assessment (SOPHIA) procedure by stepping on the foot switch once was began. The cavity integrity assessment LED signaled the test has passed. The ablation cycle started was after the successful completion of the Cavity Integrity Assessment test. Termination of the ablation was automatic at 69 seconds. The Cervical Collar was slide it to its proximal position. The Disposable Device was unlock, holding the front correspondence analyst stationary and pulling the rear handles backwards until the Closed Array indicator reads closed the Disposable Device was withdrawn from the uterine cavity. A hysteroscopy was performed post ablation to confirm therapy it was noted that endometrial cavity had been thoroughly ablated. Prior to this, a sharp curettage was performed, and endometrial curettings were also collected. Patient did have an endometrial biopsy in the office as well, which was negative. The hysteroscope and the tenaculum were removed with goad hemostasis noted. The patient tolerated the procedure well. The patient was taken to the recovery area in stable condition.
--- NOTE | 2022-03-22 16:51 | ANE.PACU2 ---
Inpatient post-anesthesia follow up: Airway intact: Yes Vital signs: Temperature 97.7 F Pulse Rate 110 Respiratory Rate 18 Blood Pressure 111/70 Pulse Oximetry 99 Oxygen Delivery Me thod Simple Mask Oxygen Flow Rate 6 Fraction of Inspir ed Oxygen Hydration adequate: Yes Nausea and vomiting: No Pain level: 1 Mental status: Baseline
[2022-03-22] MEDS: HYDROcodone-acetaminophen 5-325 mg Tablet 1 TAB PO (17:19)
== END 2022-03-22 17:52 | disposition home or self-care (01) ==
PROVIDERS: Anesthesiology; PCP Nurse Practitioner; Visit Provider Obstetrics & Gynecology
PROC: 0U598ZZ Destruction of Uterus, Via Natural or Artificial Opening Endoscopic (ICD-10-PCS; CPT 58563; principal; 2022-03-22 14:05)
PROC: (CPT 58120; 2022-03-22 14:05)
DX: N92.0 Excessive and frequent menstruation with regular cycle (principal); N84.0 Polyp of corpus uteri; J45.909 Unspecified asthma, uncomplicated
CPT/HCPCS: 58563; 84703; 88305; J1100; J1170; J1885; J2250; J2370; J2405; J2704; J3010; J7030; J7040

== ENCOUNTER → 2022-06-22 09:37 | Outpatient (BNVA) | payer BC, MEDICAID, SELFPAY | PROVIDERS: PCP Nurse Practitioner; Visit Provider Internal Medicine | DX: M35.00 Sjogren syndrome, unspecified (principal); Z79.899 Other long term (current) drug therapy; R76.8 Other specified abnormal immunological findings in serum; E61.1 Iron deficiency | CPT/HCPCS: 80053; 83540; 85025; 85651; 86140 ==

== ENCOUNTER → 2022-08-07 16:17 | Outpatient (BNVA) | payer BC, MEDICAID, SELFPAY | PROVIDERS: PCP Nurse Practitioner; Visit Provider Obstetrics & Gynecology | DX: N81.10 Cystocele, unspecified (principal); N81.89 Other female genital prolapse | CPT/HCPCS: 81000 ==

== ENCOUNTER → 2022-08-22 13:20 | Outpatient (BNVA) | payer BC, MEDICAID, SELFPAY | PROVIDERS: PCP Nurse Practitioner; Visit Provider Internal Medicine | DX: M35.00 Sjogren syndrome, unspecified (principal) | CPT/HCPCS: 80053; 85025 ==

== ENCOUNTER → 2022-10-31 09:27 | Outpatient (BNVA) | payer BC, MEDICAID, SELFPAY | PROVIDERS: PCP Nurse Practitioner; Referring Provider Internal Medicine; Visit Provider Internal Medicine | DX: M54.50 Low back pain, unspecified (principal); M35.00 Sjogren syndrome, unspecified; E61.1 Iron deficiency | CPT/HCPCS: 80053; 85025; 85651; 86140 ==

== ENCOUNTER → 2023-01-09 16:12 | Outpatient (BNVA) | payer BC, MEDICAID, SELFPAY | PROVIDERS: PCP Nurse Practitioner; Visit Provider Internal Medicine | DX: M35.00 Sjogren syndrome, unspecified (principal) | CPT/HCPCS: 80053; 85025; 85651; 86140 ==

== ENCOUNTER → 2023-03-01 15:46 | Outpatient (BNVA) | payer BC, MEDICAID, SELFPAY | PROVIDERS: PCP Nurse Practitioner; Visit Provider Internal Medicine | DX: M35.00 Sjogren syndrome, unspecified (principal); E61.1 Iron deficiency | CPT/HCPCS: 80053; 85025 ==

== ENCOUNTER → 2023-03-16 14:35 | Outpatient (BNVA) | payer BC, MEDICAID, SELFPAY | PROVIDERS: PCP Nurse Practitioner; Visit Provider Obstetrics & Gynecology | DX: N39.0 Urinary tract infection, site not specified (principal); N92.0 Excessive and frequent menstruation with regular cycle; Z87.42 Personal history of other diseases of the female genital tract | CPT/HCPCS: 81000; 84146; 84443; 84702; 85025 ==

== ENCOUNTER 2023-03-30 13:39 | Outpatient (CLI) | payer BC, MEDICAID, SELFPAY ==
--- NOTE | 2023-03-30 14:00 | US_ITS ---
WS: [id number] US transvaginal [id number] HISTORY: Z87.42 - Personal history of other diseases of the female..., Menorrhagia. COMPARISON: 02/06/2022 Uterus: 8.3 cm x 5.4 cm x 4.7 cm. Uterus is very difficult to visualize due to its position. The uterus is tipped posterior with slight flexion. Does appear to be normal size. Fibroids would be difficult to exclude. Endometrium: Not visualized. Right ovary: 3.7 cm x 4.0 cm x 3.2 cm. Limited visualization, does appear to be normal size and vascu larity, no cystic or solid masses. Left ovary: 2.8 cm x 3.4 cm x 2.2 cm. Limited visualization, does appear to be normal size and vascul arity, no cystic or solid masses. No free fluid in the cul-de-sac. US/US transvaginal [id number] IMPRESSION: 1. Very limited evaluation of the pelvic structures. 2. Uterus is tipped posterior and slightly retroflexed. 3. Poor visualization of the endometrium. 4. Limited visualization of the ovaries but no abnormality seen.
== END 2023-03-30 13:40 | disposition home or self-care (01) ==
LOC: RAD 13:40
PROVIDERS: PCP Nurse Practitioner; Visit Provider Obstetrics & Gynecology
DX: Z87.42 Personal history of other diseases of the female genital tract (principal); N85.4 Malposition of uterus
CPT/HCPCS: 76830

== ENCOUNTER 2023-05-24 09:04 | Emergency (ER) | payer BC, MEDICAID, SELFPAY ==
--- NOTE | 2023-05-24 09:09 | XR_ITS ---
WS: [id number] Right ankle, 3 views, 05/24/2023 Clinical Data: injury/trauma Comparison: None. Findings: No fractures or dislocations are seen. The ankle mortise is normal. The talus and calcaneus are unrem arkable. No soft tissue swelling over the medial or lateral malleolus is seen. XR/XR ankle RT min 3V* [id number] Impression: Negative right ankle.
--- NOTE | 2023-05-24 09:22 | W.ED.LOWEXIN ---
HPI - Extremity Injury (Lower) General: Chief Complaint: Extremity Injury, Lower Stated Complaint: right ankle injury Time Seen by Provider: 05/24/23 09:09 Source: patient Mode of arrival: other (Assistance from spouse) Limitations: no limitations History of Present Illness: Patient is a 37-year-old female who presents to the emergency room complaining of right ankle and foot pain/injury onset prior to arrival. Patient states she was heading to and walking downstairs when she stepped off the final step and rolled her ankle, subsequently putting all of her weight on an inverted foot. She experienced immediate pain, stating that it is both stabbing and throbbing in context. She rates her pain a 9/10, and states it has been getting worse and has been constant. She has not taken anything for her pain at this time. She has no prior injuries or surgeries to the ankle. She reports that it swelled up pretty soon after the incident. Her pain is worsened by movement or palpation, and she says she is unable to bear weight. The pain additionally radiates towards the middle of her foot. She denies any bruising, deformity, or any other symptoms. She denies any other injuries as result of the fall. complaint: ankle injury and foot injury Onset (ago): hour(s) Injury: Right: ankle and foot Type of Injury: inversion Place: home Severity: severe Severity scale (1-10): 9 Relieving factors: nothing Exacerbating factors: weight bearing, movement and palpation Context: fall Associated symptoms: Reports inability to bear weight, numbness and swelling Other symptoms: none Review of Systems Const: Reports: other (Fall) Musc: Reports: extremity pain (Right foot), extremity swelling (Right foot), joint pain (Right ankle), joint swelling (Right ankle) and limited range of motion; Denies: neck pain, back pain, joint redness or deformity Skin/Breast: Denies: rash Neuro: Denies: numbness in extremities, weakness in extremities or sensory changes PFSH ED PFSH: Medical History Aftercare following surgery of the genitourinary system Asthma Back pain of thoracolumbar region Iron deficiency Muscle tension headache Seasonal allergic rhinitis due to pollen Surgical History H/O tubal ligation performed during section History of section History of cholecystectomy History of hysteroscopy 03/22/2022- hysteroscopy, D&C and endometrial ablation performed by Dr. Richter at [facility] Family History Mother Diabetes Stroke Thyroid condition Father Hyperlipidemia Hypertension Heart disease Grandmother Thyroid condition maternal Grandfather Heart disease paternal Other Cancer Lupus Rheumatoid arthritis Denies family history of Colon cancer Ovarian cancer Clotting disorder Chronic kidney disease (CKD) Breast cancer Anesthesia complication Bleeding disorder Uterine cancer Physical Exam Const: COMMON NORMALS: no acute distress, patient oriented x3, alert and well nourished GENERAL APPEARANCE: cooperative and well developed ORIENTATION/CONSCIOUSNESS: Yes awake, Yes oriented to person, Yes oriented to place and Yes oriented to time HENMT: COMMON NORMALS: normocephalic and atraumatic HEAD & SCALP: normocephalic and atraumatic Neck/C-Spine: COMMON NORMALS: full ROM and supple CERVICAL SPINE: Yes cervical ROM normal and No Cervical spine tenderness Resp: COMMON NORMALS: normal respiratory effort and clear to auscultation bilaterally AUSCULTATION: clear to auscultation bilaterally Cardio: COMMON NORMALS: regular rate and regular rhythm RATE: regular rate RHYTHM: regular rhythm Back/Pelvis: COMMON NORMALS: thoracic and lumbar spine normal to inspection, no thoracic nor lumbar tenderness and thoraco-lumbar ROM normal Extremity: COMMON NORMALS: capillary refill normal and no calf tenderness GENERAL: Yes normal exam except as noted RIGHT LOWER EXTREMITY: Yes foot & digits ( ) Right ankle: Yes neurovascular exam (normal) and Yes foot & digits Right foot and digits: Yes neurovascular exam (normal) OTHER: There is moderate diffuse tenderness to palpation over the right lateral ankle. Mild swelling over the lateral ankle. There is mild tenderness to palpation about the right midfoot. Pulses 2+ and symmetrically intact. Brisk capillary refill. No signs of bruising, erythema, or other signs of trauma. Neuro: COMMON NORMALS: patient oriented x3, moves all extremities, no focal motor deficits and no sensory deficits noted SENSORIUM/ORIENTATION: Yes alert, Yes oriented to person, Yes oriented to place and Yes oriented to time GAIT: Yes Unable to assess gait Skin: COMMON NORMALS: no rashes or lesions noted GENERAL SKIN EXAM: no rashes or lesions noted TRAUMA: no lacerations or abrasions Course Vital Signs: Vital signs: Vital Signs Pulse Rate 82 05/24/23 09:49 Blood Pressure 116/77 05/24/23 09:49 Pulse Oximetry 97 05/24/23 09:49 MDM - Extremity Injury (Lower) Medical Decision Making XRs negative. Patient will be provided an Mario wrap and crutches. RICE therapy discussed. Weightbearing as tolerated. She can follow-up with primary care in 1 to 2 weeks if symptoms do not seem to be improving. Of note-acetaminophen for pain was given as a verbal order to RN however she placed the order as an acetaminophen level blood test so this was drawn/completed mistakenly. Lab Data Radiology Impressions Ankle X-Ray 05/24/23 09:09 Impression: Negative right ankle. Foot X-Ray 05/24/23 09:34 Impression: Negative right foot. Laboratory Results Acetaminophen < 5.0 ug/mL (10-30) L 05/24/23 09:54 Discharge Plan Discharge Patient Disposition: Home Clinical Impression: Right ankle sprain Qualifiers: Encounter type: initial encounter Involved ligament of ankle: unspecified ligament Qualified Code(s): S93.401A - Sprain of unspecified ligament of right ankle, initial encounter Condition: Stable Prescriptions: No Action albuterol sulfate [ProAir HFA] 90 mcg/actuation HFA aerosol inhaler 2 puff INHALATION QID PRN (Reason: shortness of breath or wheezing) Qty: 18 5RF cetirizine [Zyrtec] 10 mg tablet 10 mg PO DAILY Qty: 30 5RF hydroxyzine pamoate 50 mg capsule 50 mg PO .HS PRN (Reason: sleep) Qty: 30 5RF famotidine [Pepcid] 40 mg tablet 40 mg PO DAILY Qty: 30 2RF methotrexate sodium 2.5 mg tablet 12.5 mg PO .qweek Qty: 30 2RF folic acid 1 mg tablet 1 mg PO DAILY Qty: 90 3RF hydroxychloroquine 200 mg tablet 200 mg PO BID Qty: 60 3RF Rx Instructions: Take 1 tab daily for 1 week; then 1 tab twice daily. gabapentin 100 mg capsule 100 mg PO BID Qty: 60 2RF acetaminophen 325 mg capsule 325 mg PO Q4H PRN (Reason: fever or pain) Qty: 60 0RF Discharge Orders: Discharge ED (Routine); Ordered 05/24/23 Ordered By: Meg Fleming Referrals: Anca Garcia, DOCUMENT IMAGE TECHNICIAN-C [Primary Care Provider] - Patient Instructions: Ankle Sprain (DC), RICE Therapy Coding Level of Care Code ED Cashier And Salesperson for Raphael Fierro
--- NOTE | 2023-05-24 09:34 | XR_ITS ---
WS: [id number] Right foot, 3 views, 05/24/2023 Clinical Data: inversion injury with rad to midfoot Comparison: Right foot, 01/07/2018 Findings: No fractures or dislocations are seen. No bone destruction or erosion is noted. The joint spaces and soft tissues are normal. XR/XR foot RT min 3V* [id number] Impression: Negative right foot.
[2023-05-24] MEDS: acetaminophen 325 mg Tablet 650 MG PO (09:47)
[2023-05-24 09:49] VITALS: BP 116/77; PULSE 82; O2SAT 97
[2023-05-24 10:32] LABS: Acetaminophen < 5.0 ug/mL (10-30)
== END 2023-05-24 10:14 | disposition home or self-care (01) ==
PROVIDERS: Emergency Provider Physician Assistant; PCP Nurse Practitioner
DX: S93.401A Sprain of unspecified ligament of right ankle, initial encounter (principal); X50.1XXA Overexertion from prolonged static or awkward postures, initial encounter
CPT/HCPCS: 36415; 73610; 73630; 80307; 99283; E0114

== ENCOUNTER 2023-06-05 11:41 | Inpatient (IN) | payer BC, MEDICAID, SELFPAY ==
[2023-06-04 10:29] VITALS: BMI 35.2
[2023-06-04 10:46] LABS: Add Urine Microscopic? NO; Charge for UA Resulting for Rev
[2023-06-04 10:55] LABS: Basophils # 0.1 10^3/uL (0.0-0.1); Basophils % 0.9 %; Eosinophils # 0.3 10^3/uL (0.0-0.8); Eosinophils % 2.8 %; Hematocrit 40.2 % (37.0-47.0); Hemoglobin 13.8 g/dL (11.5-15.3); Lymphocytes # 3.4 10^3/uL (0.8-4.8); Lymphocytes % 33.3 %; Mean Corpuscular HGB Conc 34.3 g/dL (30.0-36.0); Mean Corpuscular Hemoglobin 29.9 pg (28.0-34.0); Mean Platelet Volume 9.1 fL (7.4-10.4); Monocytes # 0.7 10^3/uL (0.2-0.9); Monocytes % 6.5 %; Neutrophils # 5.72 10^3/uL (1.8-7.7); Neutrophils % 55.6 %; Nucleated Red Blood Cells % 0 %; Platelet Count 317 10^3/cmm (130-400); Red Blood Count 4.62 10^6/uL (4.1-5.3); Red Cell Distribution Width 12.8 % (12.1-15.1); White Blood Count 10.3 10^3/uL (4.0-10.0)
[2023-06-04 11:07] LABS: Bilirubin Urine Neg (Negative); Blood Urine Neg (Negative); Glucose Urine UA Norm (Normal); Ketones Urine Negative (Negative); Leukocyte Esterase Urine Negative (Negative); Nitrate Urine Negative (Negative); Protein Urine Neg (Negative); Urine Appearance Clear (CLEAR); Urine Color Dark Yellow (Yellow); Urobilinogen Urine Norm (Negative); pH Urine 5 (5-7)
[2023-06-04 12:04] LABS: Alanine Aminotransferase 21 U/L (0-33); Albumin Level 4.3 g/dL (3.5-5.2); Alkaline Phosphatase 77 U/L (35-105); Aspartate Amino Transferase 17 U/L (0-32); Blood Urea Nitrogen 11 mg/dL (6-20); Calcium 9.2 mg/dL (8.5-10.5); Carbon Dioxide 27 mmol/L (22-29); Chloride 103 mmol/L (98-107); Glomerular Filtration Rate 112.5 mL/min (90-130); Glucose 89 mg/dL (65-115); Osmolality Calculated 289 mOsm/kg (285-295); Sodium 140 mmol/L (136-145); Total Bilirubin 0.3 mg/dL (0.15-1.2); Total Protein 6.3 g/dL (6.6-8.7)
--- NOTE | 2023-06-04 14:05 | ANES.PREANE2 ---
Pre-Anesthetic Assessment Height/Weight: Height 1.52 m Weight 81.647 kg Operation Date: 06/05/23 09:10 Proposed Procedures p Laparoscopic Assist Vaginal Hysterectomy 85912,N92.0(Not Applicable) - Mike Richter MD Familial anesthetic complications: none Was Beta Madelin taken within 24 hours: N/A Was Clonidine taken within 24 hours: N/A Social No alcohol and No tobacco Exam alert, oriented x 3, clear to auscultation bilaterally and regular rate & rhythm Airway Submandibular: within normal limits Cervical ROM: within normal limits Mallampati: Class II Dentition: chipped Pulmonary Asthma GI Gastroesophageal Reflux Disease Metabolic Morbid Obesity [facility] Lower Back Pain Sjogrens, chronic pain Anesthetic Plan ASA status: 3 Anesthesia: General Medications/Allergies Home Medications Medication Instructions Recorded Confirmed Last Taken Type acetaminophen 325 mg capsule 325 mg PO Q4H PRN fever or pain 03/22/22 06/04/23 Unknown Rx #60 caps famotidine 40 mg tablet (Pepcid) 40 mg PO DAILY #30 tabs 09/09/22 06/04/23 06/04/23 Rx albuterol sulfate 90 mcg/actuation 2 puff inhalation QID PRN 01/17/23 06/04/23 Unknown Rx aerosol inhaler (ProAir HFA) shortness of breath or wheezing #18 grams cetirizine 10 mg tablet (Zyrtec) 10 mg PO DAILY #30 tabs 01/17/23 06/04/23 06/04/23 Rx hydroxyzine pamoate 50 mg capsule 50 mg PO .HS PRN sleep #30 caps 01/17/23 06/04/23 06/03/23 Rx folic acid 1 mg tablet 1 mg PO DAILY #90 tabs 01/31/23 06/04/23 06/04/23 Rx methotrexate sodium 2.5 mg tablet 12.5 mg PO .qweek #30 tabs 01/31/23 06/04/23 06/04/23 Rx hydroxychloroquine 200 mg tablet 200 mg PO BID #60 tabs 03/20/23 06/04/23 06/04/23 Rx gabapentin 100 mg capsule 100 mg PO BID #60 caps 03/29/23 06/04/23 06/04/23 Rx Allergies Allergy/AdvReac Type Severity Reaction Status Date / Time aspirins Allergy Severe Quit Uncoded 06/04/23 10:27 breathing PFSH Anesthesia Medical History Aftercare following surgery of the genitourinary system Asthma Back pain of thoracolumbar region Iron deficiency Muscle tension headache Seasonal allergic rhinitis due to pollen Surgical History H/O tubal ligation performed during section History of section History of cholecystectomy History of hysteroscopy 03/22/2022- hysteroscopy, D&C and endometrial ablation performed by Dr. Richter at [facility] Family History Mother Diabetes Stroke Thyroid condition Father Hyperlipidemia Hypertension Heart disease Grandmother Thyroid condition maternal Grandfather Heart disease paternal Other Cancer Lupus Rheumatoid arthritis Denies family history of Colon cancer Ovarian cancer Clotting disorder Chronic kidney disease (CKD) Breast cancer Anesthesia complication Bleeding disorder Uterine cancer Data Anesthesia 06/04/23 10:30 06/04/23 10:30 Short CBC 06/04/23 Range/Units 10:30 WBC 10.3 H (4.0-10.0) 10^3/uL Hgb 13.8 (11.5-15.3) g/dL Hct 40.2 (37.0-47.0) % MCV 87.0 (81-99) fl Plt Count 317 (130-400) 10^3/cmm Neut % (Auto) 55.6 % Neut # (Auto) 5.72 (1.8-7.7) 10^3/uL BMP 06/04/23 10:30 Sodium 140 Potassium 4.0 Chloride 103 Carbon Dioxide 27 BUN 11 Creatinine 0.6 Glucose 89 Calcium 9.2 Liver Function 06/04/23 Range/Units 10:30 Total Bilirubin 0.3 (0.15-1.2) mg/dL AST 17 (0-32) U/L ALT 21 (0-33) U/L Alkaline Phosphatase 77 (35-105) U/L Albumin 4.3 (3.5-5.2) g/dL Urine 06/04/23 Range/Units 10:30 Urine Color Dark yellow (Yellow) Urine Appearance Clear (CLEAR) Urine pH 5 (5-7) Ur Specific [place] 1.020 (1.005-1.030) Urine Protein Neg (Negative) Urine Glucose (UA) Norm (Normal) Urine Ketones Negative (Negative) Urine Nitrate Negative (Negative) Urine Bilirubin Neg (Negative) Ur Leukocyte Esterase Negative (Negative) Blood Bank 06/04/23 10:30 Blood Type O Negative Rho(D) Type Negative Antibody Screen Negative Cardiac Studies: No Data to Display
[2023-06-05] VITALS (20 sets, daily range): BP systolic 103–146; BP diastolic 73–91; PULSE 78–124; RESP 14–18; TEMP 36.2–36.8; O2SAT 90–100
[2023-06-05] MEDS: scopolamine 1.5 Patch 1 PATCH TRANSDERMA (06:31)
[2023-06-05] MEDS: sodium chloride 0.9% 500 ML IV (06:31)
[2023-06-05 06:48] LABS: OR HCG Qualitative Urine Negative (Negative)
--- NOTE | 2023-06-05 06:49 | W.PM.OPSUD ---
Surgery/Procedure H&P Update DATE OF PROCEDURE: June 05, 2023 DATE H&P PERFORMED: 06/04/23 H&P UPDATE INFORMATION: I have reviewed H&P completed within last 30 days, I have examined patient prior to procedure and No changes to prior documentation PREOP DIAGNOSIS: menorrhagia un responsive to medical management PLANNED PROCEDURE: Operation Date: 06/05/23 07:00 Proposed Procedures p Laparoscopic Assist Vaginal Hysterectomy 67802,N92.0(Not Applicable) - Mike Richter MD
[2023-06-05] MEDS: ceFOXitin 2,000 MG in sodium chloride 0.9% (plus) 50 ML 100 MG IV (06:55)
[2023-06-05] MEDS: sodium chloride 0.9% 1,000 ML 30 ML IV (07:00)
--- NOTE | 2023-06-05 07:36 | P.ANESUD_ITS ---
Pre-Anesthetic Update Pre-Anesthetic Assessment: Date of Surgery/Procedure: 06/05/23 Preop Yamile gnosis: menorrhagia un responsive to medical management Proposed Procedure: Operation Date: 06/05/23 07:00 Proposed Procedures p Laparoscopic Assist Vaginal Hysterectomy 81372,N92.0(Not Applicable) - Mike Richter MD Any changes to Pre-Anesthetic Assessment?: No Last Intake: Intake Last Liquid Date 06/04/23 Last Liquid Time 23:00 Last Solid Date 06/04/23 Last Solid Time 23:00 Labs Last 48hrs: Short CBC 06/04/23 Range/Units 10:30 WBC 10.3 H (4.0-10.0) 10^3/ uL Hgb 13.8 (11.5-15.3) g/dL Hct 40.2 (37.0-47.0) % MCV 87.0 (81-99) fl Plt Count 317 (130-400) 10^3/c mm Neut % (Auto) 55.6 % Neut # (Auto) 5.72 (1.8-7.7) 10^3/u L BMP 06/04/23 10:30 Sodium 140 Potassium 4.0 Chloride 103 Carbon Dioxide 27 BUN 11 Creatinine 0.6 Glucose 89 Calcium 9.2 Liver Function 06/04/23 Range/Units 10:30 Total Bilirubin 0.3 (0.15-1.2) mg/dL AST 17 (0-32) U/L ALT 21 (0-33) U/L Alkaline Phosphata se 77 (35-105) U/L Albumin 4.3 (3.5-5.2) g/dL Urine 06/04/23 Range/Units 10:30 Urine Color Dark yellow (Yellow) Urine Appearance Clear (CLEAR) Urine pH 5 (5-7) Ur Specific Gravit y 1.020 (1.005-1.030) Urine Protein Neg (Negative) Urine Glucose (UA) Norm (Normal) Urine Ketones Negative (Negative) Urine Nitrate Negative (Negative) Urine Bilirubin Neg (Negative) Ur Leukocyte Kamilla ase Negative (Negative) Blood Bank 06/04/23 10:30 Blood Type O Negative Rho(D) Type Negative Antibody Screen Negative Vitals: Temperature 97.3 F L 06/05/23 06:00 Temperature Source Temporal Artery S can 06/05/23 06:00 Pulse Rate 78 06/05/23 06:00 Pulse Rhythm Regular 06/05/23 06:12 Pulse Strength 3+ Normal 06/05/23 06:12 Respiratory Rate 18 06/05/23 06:00 Blood Pressure 146/81 06/05/23 06:00 Blood Pressure Ester n 102 06/05/23 06:00 Pulse Oximetry 99 06/05/23 06:00 Oxygen Delivery Me thod Room Air 06/05/23 06:12 Exam: Pre-Anes Outpt Exam: alert, oriented x 3, clear to auscultation bilaterally and regular rate & rhythm Cardiac Studies: No Data to Display
--- NOTE | 2023-06-05 07:55 | SUR.OPER ---
Family Notified Of Patient's Status Via Phone.
[2023-06-05] MEDS: BUPivacaine liposome 13.3 mg/mL SDV 10 mL 266 MG INFILTRATI (08:09)
[2023-06-05] MEDS: BUPivacaine 0.5% INJ 10 mL 20 ML INJECTION (08:09)
--- NOTE | 2023-06-05 10:41 | P.OP_ITS ---
Operative Report Date of procedure: June 05, 2023 Pre-op diagnosis: Preop Diagnosis menorrhagia un responsive to medical management Procedure done: Diagnostic laparoscopy. Total abdominal hysterectomy Specimens removed/disposition: uterus Surgeon: Mike Richter MD Estimated blood loss (mL): 750 IV fluids (mL): 2,400 Urine output (mL): 100 Complications: dense omental and bladder adhesions over the uterus Procedure: After informed consent, the patient was taken to the operating room where general anesthesia was administered. Pre-Procedure Time-Out verifying the correct patient identity, correct procedure verified with consent, correct site and side, correct patient position, availability of correct implants and any special equipment or requirements was performed and acknowledge by the OR team. She was placed in the dorsal lithotomy position and prepped and draped in sterile fashion. The patient was examined under anesthesia and found to have a normal uterus with normal adnexa. A Sloan catheter was placed in the bladder. A weighted speculum was placed in the vagina, and the anterior lip of cervix was grasped with the single toothed tenaculum. A uterine manipulator was advanced into the endocervical. Tenaculum was removed after uterine manipulator was secured. The speculum was removed from the vagina. The attention was brought to abdomen after changing gloves. The base of the umbilicus was grasped with an Allis clamp and with 2 towel clamp bilaterally tenting up the umbilicus an intraumbilical incision was made with a scalpel. While tenting up on the abdomen, a Verres needle with sleeve was admitted into the intra-abdominal cavity. A saline drop test was performed and noted to be within normal limits. Pneumoperitoneum was attained with 4 liters of carbon dioxide. The Verres needle was removed. Then a 5 mm Optiview trocar and cannula were inserted under direct visualization without complications. Trocars were removed and the laparoscope was inserted and connected to the video camera light source. While doing anatomy survey dense adhesions noted over the uterus adhered to the anterior and right abdominal wall. Decision was made to proceed with open abdominal hysterectomy. Subsequently, a Pfannenstiel incision was made and the incision was taken down to the fascia. The fascia was opened up sharply. The fascia was extended to the length of the incision using the Huynh scissors. At this time, the rectus muscles were dissected from the fascia superiorly and inferiorly to the symphysis pubis. The midline rectus muscles were opened sharply and extended superiorly and inferiorly. Dense adhesions of the uterus to anterior abdominal wall and right pelvic side. Carefull blunt and sharp disection was performed to take down the adhesions to free the uterus. Then the abdominal contents were packed superiorly away from the operative site using the lap packs. At this time, the pelvic organs were noted. The inferior and superior blades were placed in place on the Samy self-retaining retractor. Bowel was packed away from the operative site. The fundus of the uterus was then grasped with a triple-tooth tenaculum and retracted out of the pelvic cavity into the abdominal site. At this point, Chana clamps were placed in both right and left adnexal regions. Subsequently, using the LigaSure cautery unit, the round ligaments were grasped, cauterized, and dissected. The bladder flap was then formed and the bladder flap was pushed away down anteriorly over the lower uterine segment, pushed away from the operative site on both the right and left sides. Subsequently, the posterior leaf of the broad ligament was opened sharply and the LigaSure instrument was then placed below the level of the ovary in both the right and left side, care being taken not to damage bowel or uterus and the infundibulopelvic ligament was then grasped, cauterized, and again dissected. Further dissection of the broad ligament was carried down posteriorly towards the uterine vessels. The bladder was pushed inferiorly down towards the vagina. Subsequently, the uterine vessels were then grasped again with the LigaSure machine, cauterized, and dissected. The cardinal ligaments were further grasped, dissected, and suture ligated, again with the LigaSure machine. At that point, the LigaSure machine instrument was stopped and straight Zeppelin clamps were used on the cardinal ligaments down towards the uterosacral ligaments. The cardinal ligaments were grasped, dissected with a scalpel and then ligated with transfixion sutures with #1 Vicryl suture down to the uterosacral ligaments. The uterosacral ligaments were grasped, dissected, and suture ligated again with #1 Vicryl suture and transfixion sutures. At that time, the bladder had been pushed over the vagina and at this time right-angle Zeppelin clamps were placed on the vagina at the level of the cervix, and using the Boby scissors, the cervix was dissected away from the vagina. At this time, the vaginal cuff was then closed using interrupted sutures of #1 Vicryl suture from the midline to each lateral corner. After the good hemostasis had been achieved in the vaginal cuff, both the right and left adnexa was visualized and no more bleeding was noted. The cuff was in tact with no bleeding noted. The bladder was visualized and no bleeding was noted. Seprafilm was then placed over the vaginal cuff. The Samy self- retaining retractor was removed. The lap packs were removed, and at this time, general closure of the abdomen was carried out. The peritoneum was closed with a 2-0 Vicryl suture and continuous running suture. The fascia was closed using a #1 Vicryl suture from each corner to the midline. Subcutaneous tissue was cauterized. No bleeding was noted. Exparell was infiltrated for pain management. The subcutaneous tissue was then reapproximated using plain sutures and interrupted sutures, and the skin was closed using Insorb absorbable subcuticular awa. The patient tolerated the procedure well and was transferred to the recovery room in excellent condition. The patient returned to the floor for recovery.
[2023-06-05] MEDS: fentaNYL 50 mcg/mL INJ 2mL IVP ×2 (10:52→11:06)
[2023-06-05] MEDS: ketorolac 30 mg/mL INJ IVP ×3 (12:03→23:15)
[2023-06-05] MEDS: dextrose 5%-lactated ringers 1,000 ML 125 ML IV ×2 (12:03→19:52)
[2023-06-05] MEDS: HYDROcodone-acetaminophen 5-325 mg Tablet PO ×2 (14:23→20:58)
--- NOTE | 2023-06-05 16:09 | ANE.PACU2 ---
Inpatient post-anesthesia follow up: Airway intact: Yes Vital signs: Temperature 97.7 F Pulse Rate 99 Respiratory Rate 16 Blood Pressure 108/73 Pulse Oximetry 96 Oxygen Delivery Me thod Room Air Oxygen Flow Rate 3 Fraction of Inspir ed Oxygen 2 Hydration adequate: Yes Nausea and vomiting: No Pain level: 3 Mental status: Baseline
[2023-06-05] MEDS: docusate sodium 100 mg Capsule PO (17:58)
[2023-06-05] MEDS: hydroxychloroquine 200 mg Tablet PO (17:58)
[2023-06-05] MEDS: gabapentin 100 mg Capsule PO (17:59)
[2023-06-06] MEDS: dextrose 5%-lactated ringers 1,000 ML 125 ML IV (03:53)
[2023-06-06 04:01] VITALS: BP 118/80; PULSE 101; RESP 15; TEMP 36.7; O2SAT 97
[2023-06-06 05:34] LABS: Hematocrit 27.4 % (37.0-47.0); Hemoglobin 9.1 g/dL (11.5-15.3); Mean Corpuscular HGB Conc 33.2 g/dL (30.0-36.0); Mean Corpuscular Hemoglobin 29.5 pg (28.0-34.0); Mean Platelet Volume 8.9 fL (7.4-10.4); Platelet Count 250 10^3/cmm (130-400); Red Blood Count 3.08 10^6/uL (4.1-5.3); Red Cell Distribution Width 13.4 % (12.1-15.1); White Blood Count 14.2 10^3/uL (4.0-10.0)
[2023-06-06] MEDS: ketorolac 30 mg/mL INJ IVP (05:48)
[2023-06-06] MEDS: gabapentin 100 mg Capsule PO ×2 (09:10→17:07)
[2023-06-06] MEDS: famotidine 20 mg Tablet 40 MG PO (09:10)
[2023-06-06] MEDS: HYDROcodone-acetaminophen 5-325 mg Tablet PO ×3 (09:10→23:08)
[2023-06-06] MEDS: docusate sodium 100 mg Capsule PO ×2 (09:11→16:50)
[2023-06-06] MEDS: cetirizine 10 mg Tablet PO (09:11)
[2023-06-06] MEDS: hydroxychloroquine 200 mg Tablet PO ×2 (09:11→17:07)
[2023-06-06 09:15] VITALS: BP 133/76; PULSE 87; RESP 16; TEMP 36.8
--- NOTE | 2023-06-06 10:21 | PM.PN ---
Subjective Subjective: Ms. Mcnamara 33-year-old female with a history of abnormal uterine bleeding unresponsive to medical management and pelvic pain admitted for laparoscopic-assisted vaginal hysterectomy, but converted to total abdominal hysterectomy due to adhesions. Vitals/I&O/Wt Last Vital Signs Temp 98.1 F 06/06/23 04:01 Pulse 101 H 06/06/23 04:01 Resp 15 06/06/23 04:01 BP 118/80 06/06/23 04:01 Pulse Ox 97 06/06/23 04:01 O2 Del Method Room Air 06/06/23 04:01 O2 Flow Rate 3 06/05/23 11:16 FiO2 2 06/05/23 12:40 06/05/23 06/06/23 06/06/23 22:59 06:59 14:59 Intake Total 1000 / 4050 1000 / 5050 Output Total 750 / 1900 600 / 2500 Balance 250 / 2150 400 / 2550 Weight last 48 hrs Weight 81.647 kg Physical Exam Narrative: GA: Alert and oriented ?3. HEENT: WNL. Heart: Regular rate and rhythm. Lungs: Clear to auscultation bilaterally. Abdomen: Bowel sounds present, nontender, minimal tenderness, incision clean and dry, no redness, pain or edema. MATERIALS AND PROCESSES MANAGER: No bleeding. Extremities: No edema, no cyanosis, no calves pain. Urinary Catheter Management: Sloan: Cath Placed During This Visit: yes, but has since been removed by the nurse Reason for Continuing Indwelling Catheter: Decision to DC Catheter Urinary Catheter Date of Insertion: 06/05/23 Urinary Catheter Time of Insertion: 07:25 Date Urinary Catheter Removed: 06/06/23 Time Urinary Catheter Discontinued: 05:34 Data 06/06/23 05:25 06/04/23 10:30 A&P Assessment and plan (1) Status post abdominal hysterectomy: Mrs. Mcnamara 37-year-old female with 3. delivery is status post total abdominal hysterectomy postoperative day 1. She is afebrile hemodynamically stable. Tolerating diet well. Ambulating without difficulty. Attestations Medical Necessity Statement*: In my professional opinion per admitting diagnosis Coding Level of Care Code Acute Code for Chg Fwd Diagnoses Status post abdominal hysterectomy Z90.710
[2023-06-06] MEDS: ibuprofen 800 mg tablet PO ×2 (11:31→19:23)
[2023-06-06 16:52] VITALS: BP 124/78; PULSE 87; RESP 16; TEMP 36.9
[2023-06-06] MEDS: simethicone 80 mg Chew PO (19:23)
[2023-06-06 21:36] VITALS: BP 126/83; PULSE 92; RESP 18; TEMP 36.9; O2SAT 98
[2023-06-07] MEDS: ibuprofen 800 mg tablet PO ×2 (02:03→11:29)
[2023-06-07 05:00] VITALS: BP 109/74; PULSE 87; RESP 16; TEMP 36.8; O2SAT 98
[2023-06-07] MEDS: HYDROcodone-acetaminophen 5-325 mg Tablet PO (05:57)
[2023-06-07 07:24] LABS: Basophils # 0.1 10^3/uL (0.0-0.1); Basophils % 0.7 %; Eosinophils # 0.2 10^3/uL (0.0-0.8); Eosinophils % 1.4 %; Hematocrit 27.4 % (37.0-47.0); Hemoglobin 9.2 g/dL (11.5-15.3); Lymphocytes # 2.5 10^3/uL (0.8-4.8); Lymphocytes % 21.2 %; Mean Corpuscular HGB Conc 33.6 g/dL (30.0-36.0); Mean Corpuscular Hemoglobin 30.4 pg (28.0-34.0); Mean Corpuscular Volume 90.4 fl (81-99); Mean Platelet Volume 9.2 fL (7.4-10.4); Monocytes # 0.7 10^3/uL (0.2-0.9); Monocytes % 6.2 %; Neutrophils # 8.11 10^3/uL (1.8-7.7); Neutrophils % 70.1 %; Nucleated Red Blood Cells % 0 %; Platelet Count 238 10^3/cmm (130-400); Red Blood Count 3.03 10^6/uL (4.1-5.3); Red Cell Distribution Width 13.8 % (12.1-15.1); White Blood Count 11.6 10^3/uL (4.0-10.0)
[2023-06-07] MEDS: gabapentin 100 mg Capsule PO (08:43)
[2023-06-07] MEDS: cetirizine 10 mg Tablet PO (08:43)
[2023-06-07] MEDS: hydroxychloroquine 200 mg Tablet PO (08:43)
[2023-06-07] MEDS: docusate sodium 100 mg Capsule PO (08:43)
[2023-06-07] MEDS: folic acid 1 mg Tablet PO (08:43)
[2023-06-07] MEDS: famotidine 20 mg Tablet 40 MG PO (08:43)
[2023-06-07 10:00] VITALS: BP 118/78; PULSE 93; RESP 14; O2SAT 99
--- NOTE | 2023-06-07 12:16 | P.DS_ITS ---
Discharge Providers BAND AND CUFF CUTTER Date of Admission: 06/05/23 11:41 Date of Discharge: 06/07/23 Attending Provider at Admission: Mike Richter MD Attending Provider at Discharge: Mike Richter MD Primary BAND AND CUFF CUTTER: Mike Richter MD Primary Care Provider: SHAVON Perales Diagnoses at Discharge Discharge Diagnosis (1) Status post abdominal hysterectomy: Status: Acute Reason for Visit Reason for Visit: N92.0 Hospital Course Hospital Course Ms. Mcnamara 37-year-old female with a history of abnormal uterine bleeding and pelvic pain unresponsive to medical management. Admitted for plan laparoscopic- assisted vaginal hysterectomy that was converted to a total abdominal hysterectomy due to dence adhesions of the uterus to anterior abdominal wall. The total abdominal hysterectomy was performed without complications. Postop observation was uneventful. She is afebrile and hemodynamically stable postoperative day 2. Tolerating diet well. Ambulating without difficulty. Adequate urine output. Minimal bleeding. Pain under control. She was counseled regarding pelvic rest for 6 weeks (no sex, no tampons, no vaginal douches). Return to the emergency room if any fever, increased bleeding or pain. Physical Exam Narrative: GA: Alert and oriented ?3. HEENT: WNL. Heart: Regular rate and rhythm. Lungs: Clear to auscultation bilaterally. Abdomen: Bowel sounds present, nontender, minimal tenderness, incision clean and dry, no redness, pain or edema. INSPECTOR MATERIAL DISPOSITION: No bleeding. Extremities: No edema, no cyanosis, no calves pain. Urinary Catheter Management: Sloan: Cath Placed During This Visit: yes, but has since been removed by the nurse Reason for Continuing Indwelling Catheter: Decision to DC Catheter Urinary Catheter Date of Insertion: 06/05/23 Urinary Catheter Time of Insertion: 07:25 Date Urinary Catheter Removed: 06/06/23 Time Urinary Catheter Discontinued: 05:34 History History History 8 Term 3 0 Miscarriages/Ectopic 5 Living Children 3 Discharge Data Studies Completed and Pending Pending at discharge Category Date Time Status Pathology: Surgical [PTH] Routine Pth 06/05/23 10:36 Received Laboratory Results WBC 11.6 10^3/uL (4.0-10.0) H 06/07/23 07:13 RBC 3.03 10^6/uL (4.1-5.3) L 06/07/23 07:13 Hgb 9.2 g/dL (11.5-15.3) L 06/07/23 07:13 Hct 27.4 % (37.0-47.0) L 06/07/23 07:13 MCV 90.4 fl (81-99) 06/07/23 07:13 MCH 30.4 pg (28.0-34.0) 06/07/23 07:13 MCHC 33.6 g/dL (30.0-36.0) 06/07/23 07:13 RDW 13.8 % (12.1-15.1) 06/07/23 07:13 Plt Count 238 10^3/cmm (130-400) 06/07/23 07:13 MPV 9.2 fL (7.4-10.4) 06/07/23 07:13 Neut % (Auto) 70.1 % 06/07/23 07:13 Lymph % (Auto) 21.2 % 06/07/23 07:13 [place] % (Auto) 6.2 % 06/07/23 07:13 Eos % (Auto) 1.4 % 06/07/23 07:13 Baso % (Auto) 0.7 % 06/07/23 07:13 Neut # (Auto) 8.11 10^3/uL (1.8-7.7) H 06/07/23 07:13 Lymph # (Auto) 2.5 10^3/uL (0.8-4.8) 06/07/23 07:13 [place] # (Auto) 0.7 10^3/uL (0.2-0.9) 06/07/23 07:13 Eos # (Auto) 0.2 10^3/uL (0.0-0.8) 06/07/23 07:13 Baso # (Auto) 0.1 10^3/uL (0.0-0.1) 06/07/23 07:13 Nucleated RBC % (auto) 0 % 06/07/23 07:13 Nucleated RBCs # 0.0 /100WBC 06/07/23 07:13 Sodium 140 mmol/L (136-145) 06/04/23 10:30 Potassium 4.0 mmol/L (3.5-5.1) 06/04/23 10:30 Chloride 103 mmol/L (98-107) 06/04/23 10:30 Carbon Dioxide 27 mmol/L (22-29) 06/04/23 10:30 Anion Gap 14.0 (5-19) 06/04/23 10:30 BUN 11 mg/dL (6-20) 06/04/23 10:30 Creatinine 0.6 mg/dL (0.5-0.9) 06/04/23 10:30 GFR Calculation 112.5 mL/min (90-130) 06/04/23 10:30 Glucose 89 mg/dL (65-115) 06/04/23 10:30 Calculated Osmolality 289 mOsm/kg (285-295) 06/04/23 10:30 Calcium 9.2 mg/dL (8.5-10.5) 06/04/23 10:30 Total Bilirubin 0.3 mg/dL (0.15-1.2) 06/04/23 10:30 AST 17 U/L (0-32) 06/04/23 10:30 ALT 21 U/L (0-33) 06/04/23 10:30 Alkaline Phosphatase 77 U/L (35-105) 06/04/23 10:30 Total Protein 6.3 g/dL (6.6-8.7) L 06/04/23 10:30 Albumin 4.3 g/dL (3.5-5.2) 06/04/23 10:30 Globulin 2.0 g/dL (1.3-4.6) 06/04/23 10:30 Urine Color Dark yellow (Yellow) 06/04/23 10:30 Urine Appearance Clear (CLEAR) 06/04/23 10:30 Urine pH 5 (5-7) 06/04/23 10:30 Ur Specific [place] 1.020 (1.005-1.030) 06/04/23 10:30 Urine Protein Neg (Negative) 06/04/23 10:30 Urine Glucose (UA) Norm (Normal) 06/04/23 10:30 Urine Ketones Negative (Negative) 06/04/23 10:30 Urine Blood Neg (Negative) 06/04/23 10:30 Urine Nitrate Negative (Negative) 06/04/23 10:30 Urine Bilirubin Neg (Negative) 06/04/23 10:30 Urine Urobilinogen Norm mg/dL (Negative) 06/04/23 10:30 Ur Leukocyte Esterase Negative (Negative) 06/04/23 10:30 Urine HCG, Qual Negative (Negative) 06/05/23 06:44 Blood Type O Negative 06/04/23 10:30 Rho(D) Type Negative 06/04/23 10:30 Antibody Screen Negative 06/04/23 10:30 Vitals Last Vital Signs Temp 98.3 F 06/07/23 05:00 Pulse 87 06/07/23 05:00 Resp 16 06/07/23 05:00 BP 109/74 06/07/23 05:00 Pulse Ox 98 06/07/23 05:00 O2 Del Method Room Air 06/07/23 05:00 O2 Flow Rate 3 06/05/23 11:16 FiO2 2 06/05/23 12:40 Discharge Plan Discharge Patient Disposition: Home Condition: Stable Prescriptions: New hydrocodone-acetaminophen 5-325 mg tablet 1 tab PO Q4H PRN (Reason: pain) Qty: 30 0RF acetaminophen 325 mg capsule 325 mg PO Q4H PRN (Reason: fever or pain) Qty: 60 0RF docusate sodium [Colace] 100 mg capsule 100 mg PO BID Qty: 60 0RF ferrous sulfate [Iron (ferrous sulfate)] 325 mg (65 mg iron) tablet 325 mg PO BID Qty: 60 0RF ibuprofen 800 mg tablet 800 mg PO TID PRN (Reason: pain) Qty: 60 0RF Continued albuterol sulfate [ProAir HFA] 90 mcg/actuation HFA aerosol inhaler 2 puff INHALATION QID PRN (Reason: shortness of breath or wheezing) Qty: 18 5RF cetirizine [Zyrtec] 10 mg tablet 10 mg PO DAILY Qty: 30 5RF hydroxyzine pamoate 50 mg capsule 50 mg PO .HS PRN (Reason: sleep) Qty: 30 5RF famotidine [Pepcid] 40 mg tablet 40 mg PO DAILY Qty: 30 2RF methotrexate sodium 2.5 mg tablet 12.5 mg PO .qweek Qty: 30 2RF folic acid 1 mg tablet 1 mg PO DAILY Qty: 90 3RF hydroxychloroquine 200 mg tablet 200 mg PO BID Qty: 60 3RF Rx Instructions: Take 1 tab daily for 1 week; then 1 tab twice daily. gabapentin 100 mg capsule 100 mg PO BID Qty: 60 2RF acetaminophen 325 mg capsule 325 mg PO Q4H PRN (Reason: fever or pain) Qty: 60 0RF Discharge Orders: Discharge Order (Routine); Ordered 06/07/23 Ordered By: Mike Richter Referrals: Mike Richter MD [Physician] - 06/20/23 11:00 am (2 week post-op: 06/20/23 @11 6 week post-op: 07/30/23 @2:30) Discharge Diet: Usual diet Discharge Activity: Limit activity as instructed Patient Instructions: Hysterectomy (DC), OB Abdominal Surgery - [facility], OB Discharge Report, OB Food/Drug Interaction Guide, Opioid Safety Activity Restrictions/Additional Instructions: 1. Please call [facility] on next working day to make your post-operative appointment in 2 weeks. 2. Please stay home until you come back to the clinic on first post- hospatilization check up. 3. Please follow instructions on your medications CAREFULLY. 4. If you have abdominal incision, do not cover it unless dressing is necessary because of drainage. OK to shower, but avoid bath. Leave steri-strips until they fall off. If they are still on one week after surgery, you may remove them. 5. If you had vaginal surgery or vaginal repair, Dr. Richter may instruct you to take SITZ bath. 6. Yellow, blood tinged odorous vaginal discharge is usually normal after hysterectomy or vaginal surgeries. 7. No SEXUAL INTERCOURSE, tampons, or douches until you are completely released from the post-operative care. 8. Avoid constipation by eating right and maybe using some Metamucil or Milk of Magnesia. 9. All prescription refills are given during the working hours. Please do no wait till it runs out. Call the clinic at [phone] before your medication runs out. The clinic will get in touch with your doctor to prescribe medications if necessary. 10. Please remain within 40 mile radius from our hospital because emergencies do happen now and then during the post-operative period. 11. If you have stairs at home, take one step at a time slowly and minimize the number of trips. It helps to stay in one floor for the next few days. No lifting except what you can lift by one hand until you are released from the post-operative care. 12. Driving is discouraged until you are well healed. It may be 3-4 weeks before you feel strong enough to drive. You should be able to turn and look through the rear window without pain and you should be able to push the brake pedal very hard without pain before you drive. No fast rules, but SAFETY should be your primary concern. DO NOT drive if you are on sedating medications such as narcotics. 13. Call the clinic (during working hours) to make urgent appointment or go to the Emergency room, if any of the following occurs: i. Vaginal bleeding becomes heavy, more than a period. ii. Incision becomes red and sore, or drains pus. iii. Your TEMPERATURE is over 100.4F or you have chill. iv. IV site becomes red and swollen (a little ``knot?? is usually OK) v. Persistent nausea and vomiting vi. Persistent constipation or diarrhea vii. Rash or allergic reaction to medications. Discharge Attestations BAND AND CUFF CUTTER Time Spent in Discharge Care*: greater than 30 min Coding Level of Care Code Acute Code for Chg Fwd Diagnoses Status post abdominal hysterectomy Z90.710
[2023-06-07 12:20] VITALS: BP 111/68; PULSE 84; RESP 14; TEMP 36.9; O2SAT 99
[2023-06-07 13:26] VITALS: PULSE 84; RESP 14; TEMP 36.9; O2SAT 99
== END 2023-06-07 12:40 | disposition home or self-care (01) | DRG 743 ==
LOC: OBGYN 16:03
PROVIDERS: Anesthesiology; Admitting Provider Obstetrics & Gynecology; PCP Nurse Practitioner; Visit Provider Obstetrics & Gynecology
PROC: 0UT9FZZ Resection of Uterus, Via Natural or Artificial Opening With Percutaneous Endoscopic Assistance (ICD-10-PCS; principal; 2023-06-05 07:00)
PROC: 0UT90ZZ Resection of Uterus, Open Approach (ICD-10-PCS; CPT 58150; 2023-06-05 07:00)
DX: N92.0 Excessive and frequent menstruation with regular cycle (principal); E66.01 Morbid (severe) obesity due to excess calories; Z68.35 Body mass index [BMI] 35.0-35.9, adult; G89.29 Other chronic pain; M35.00 Sjogren syndrome, unspecified; K66.0 Peritoneal adhesions (postprocedural) (postinfection)
CPT/HCPCS: 36415; 80053; 81003; 81025; 84703; 85025; 85027; 86850; 86900; 88307; 96374; 96376; C9290; J0694; J1100; J1170; J1200; J1885; J2250; J2405; J2704; J2710; J3010; J3490; J3535; J7030; J7040; J7121

== ENCOUNTER → 2023-06-20 09:21 | Outpatient (BNVA) | payer BC, MEDICAID, SELFPAY | PROVIDERS: PCP Nurse Practitioner; Visit Provider Obstetrics & Gynecology | DX: N83.201 Unspecified ovarian cyst, right side (principal) | CPT/HCPCS: 76857 ==

== ENCOUNTER → 2023-09-27 15:03 | Outpatient (BNVA) | payer BC, SELFPAY | PROVIDERS: PCP Nurse Practitioner; Visit Provider Internal Medicine | DX: M35.00 Sjogren syndrome, unspecified (principal); R20.0 Anesthesia of skin; R20.2 Paresthesia of skin | CPT/HCPCS: 36415; 80053; 85025; 85651; 86140 ==

== ENCOUNTER → 2023-12-05 13:52 | Outpatient (BNVA) | payer BC, SELFPAY | PROVIDERS: PCP Nurse Practitioner; Visit Provider Nurse Practitioner Family | DX: K64.4 Residual hemorrhoidal skin tags (principal); K62.5 Hemorrhage of anus and rectum; K64.9 Unspecified hemorrhoids; Z79.899 Other long term (current) drug therapy | CPT/HCPCS: 85025 ==

== ENCOUNTER → 2023-12-07 11:41 | Outpatient (BNVA) | payer BC, SELFPAY | PROVIDERS: PCP Nurse Practitioner; Visit Provider Nurse Practitioner Family | DX: K64.4 Residual hemorrhoidal skin tags (principal); K62.5 Hemorrhage of anus and rectum; E61.1 Iron deficiency | CPT/HCPCS: 82272 ==

== ENCOUNTER 2024-03-14 14:46 | Outpatient (CLI) | payer BC, MEDICAID, SELFPAY ==
[2024-03-14 15:00] LABS: Basophils # 0.1 10^3/uL (0.0-0.1); Basophils % 1.1 %; Eosinophils # 0.3 10^3/uL (0.0-0.8); Eosinophils % 2.8 %; Hematocrit 39.9 % (36-47); Lymphocytes % 30.7 %; Mean Corpuscular HGB Conc 33.1 g/dL (30-55); Mean Corpuscular Hemoglobin 29.7 pg (27-33); Mean Corpuscular Volume 89.7 fl (85-98); Mean Platelet Volume 9.7 fL (7.4-10.4); Monocytes # 0.8 10^3/uL (0.2-0.9); Monocytes % 8.1 %; Neutrophils # 5.52 10^3/uL (1.8-7.7); Neutrophils % 56.5 %; Nucleated Red Blood Cells % 0 %; Platelet Count 316 10^3/cmm (157-399); Red Blood Count 4.45 10^6/uL (3.85-5.65); Red Cell Distribution Width 13.1 % (12.1-15.1); White Blood Count 9.77 10^3/uL (3.29-11.43)
[2024-03-14 15:17] LABS: Alanine Aminotransferase 19 U/L (0-33); Alkaline Phosphatase 76 U/L (35-105); Aspartate Amino Transferase 16 U/L (0-32); C Reactive Protein 4.2 mg/L (0.0-4.9); Globulin 2.4 g/dL (1.3-4.6); Glomerular Filtration Rate 111.9 mL/min (90-130); Total Bilirubin 0.2 mg/dL (0.15-1.2); Total Protein 6.4 g/dL (6.6-8.7)
== END 2024-03-14 14:47 | disposition home or self-care (01) ==
LOC: LAB 14:47
PROVIDERS: PCP Nurse Practitioner; Visit Provider Internal Medicine Rheumatology
DX: M06.00 Rheumatoid arthritis without rheumatoid factor, unspecified site (principal); Z79.899 Other long term (current) drug therapy
CPT/HCPCS: 80076; 82565; 85025; 86140

== ENCOUNTER 2024-05-21 11:28 | Outpatient (CLI) | payer BC, MEDICAID, SELFPAY ==
[2024-05-21 12:29] LABS: Basophils % 0.4 %; Eosinophils # 0.1 10^3/uL (0.0-0.8); Eosinophils % 0.6 %; Hematocrit 42.9 % (36-47); Lymphocytes # 1.9 10^3/uL (0.8-4.8); Lymphocytes % 17.3 %; Mean Corpuscular HGB Conc 33.3 g/dL (30-55); Mean Corpuscular Hemoglobin 28.8 pg (27-33); Mean Corpuscular Volume 86.5 fl (85-98); Mean Platelet Volume 9.9 fL (7.4-10.4); Monocytes # 0.5 10^3/uL (0.2-0.9); Monocytes % 4.2 %; Neutrophils # 8.32 10^3/uL (1.8-7.7); Neutrophils % 76.9 %; Nucleated Red Blood Cells % 0 %; Platelet Count 388 10^3/cmm (157-399); Red Blood Count 4.96 10^6/uL (3.85-5.65); Red Cell Distribution Width 13.3 % (12.1-15.1)
[2024-05-21 12:47] LABS: Erythrocyte Sedimentation Rate 7 mm/hr (0-15)
[2024-05-21 13:05] LABS: 25 Hydroxy Vitamin D 22 ng/mL (30-100); Alanine Aminotransferase 44 U/L (0-33); Albumin Level 4.6 g/dL (3.5-5.2); Alkaline Phosphatase 96 U/L (35-105); Aspartate Amino Transferase 25 U/L (0-32); C Reactive Protein 7.1 mg/L (0.0-4.9); Globulin 2.8 g/dL (1.3-4.6); Glomerular Filtration Rate 138.1 mL/min (90-130); Total Bilirubin 0.6 mg/dL (0.15-1.2); Total Protein 7.4 g/dL (6.6-8.7)
[2024-05-22 10:30] LABS: Hepatitis B Core AB, Total Non-Reactive (Nonreactive); Hepatitis B Surface Antigen Non-Reactive (Nonreactive); Hepatitis C Virus Antibody Non-Reactive (Nonreactive)
[2024-05-23 14:39] LABS: Quantiferon Mitogen >10.00 IU/mL; Quantiferon Nil 0.02 IU/mL; Quantiferon Plus TB1 0.02 IU/mL; Quantiferon Plus TB2 0.01 IU/mL; Quantiferon TB Gold NEGATIVE (NEGATIVE)
== END 2024-05-21 11:29 | disposition home or self-care (01) ==
PROVIDERS: PCP Nurse Practitioner; Visit Provider Internal Medicine Rheumatology
DX: M06.00 Rheumatoid arthritis without rheumatoid factor, unspecified site (principal); Z11.59 Encounter for screening for other viral diseases; Z79.899 Other long term (current) drug therapy; Z11.1 Encounter for screening for respiratory tuberculosis
CPT/HCPCS: 36415; 80076; 82306; 82565; 85025; 85651; 86140; 86480; 86704; 86803; 87340

== ENCOUNTER 2024-06-13 12:30 | Outpatient (CLI) | payer BC, MEDICAID, SELFPAY ==
[2024-06-13 13:14] LABS: Alanine Aminotransferase 22 U/L (0-33); Albumin Level 4.1 g/dL (3.5-5.2); Alkaline Phosphatase 74 U/L (35-105); Aspartate Amino Transferase 15 U/L (0-32); Globulin 1.9 g/dL (1.3-4.6); Total Bilirubin 0.3 mg/dL (0.15-1.2)
== END 2024-06-13 12:31 | disposition home or self-care (01) ==
LOC: LAB 12:32
PROVIDERS: PCP Nurse Practitioner; Visit Provider Internal Medicine Rheumatology
DX: Z79.899 Other long term (current) drug therapy (principal); M06.00 Rheumatoid arthritis without rheumatoid factor, unspecified site; R74.8 Abnormal levels of other serum enzymes
CPT/HCPCS: 36415; 80076

== ENCOUNTER → 2024-08-26 07:54 | Outpatient (BNVA) | payer BC, MEDICAID, SELFPAY | PROVIDERS: PCP Nurse Practitioner; Visit Provider Internal Medicine Rheumatology | DX: M06.00 Rheumatoid arthritis without rheumatoid factor, unspecified site (principal); Z79.899 Other long term (current) drug therapy | CPT/HCPCS: 80076; 82565; 85025; 85651; 86140 ==

== ENCOUNTER → 2024-10-02 11:56 | Outpatient (BNVA) | payer BC, SELFPAY | PROVIDERS: PCP Nurse Practitioner; Visit Provider Clinical Nurse Specialist Adult Health | DX: J06.9 Acute upper respiratory infection, unspecified (principal) | CPT/HCPCS: 87071; 87426; 87880 ==

== ENCOUNTER 2025-01-15 11:44 | Outpatient (CLI) | payer BC, MEDICAID, SELFPAY ==
[2025-01-15 12:29] LABS: Basophils # 0.1 10^3/uL (0.0-0.1); Eosinophils # 0.2 10^3/uL (0.0-0.8); Eosinophils % 2.2 %; Hematocrit 39.9 % (36-47); Lymphocytes % 21.1 %; Mean Corpuscular HGB Conc 32.6 g/dL (30-55); Mean Corpuscular Volume 89.1 fl (85-98); Mean Platelet Volume 9.9 fL (7.4-10.4); Monocytes # 0.8 10^3/uL (0.2-0.9); Monocytes % 8.2 %; Neutrophils # 6.28 10^3/uL (1.8-7.7); Nucleated Red Blood Cells % 0 %; Platelet Count 302 10^3/cmm (157-399); Red Blood Count 4.48 10^6/uL (3.85-5.65); Red Cell Distribution Width 13.8 % (12.1-15.1); White Blood Count 9.38 10^3/uL (3.29-11.43)
[2025-01-15 12:37] LABS: Erythrocyte Sedimentation Rate 1 mm/hr (0-15)
[2025-01-15 12:52] LABS: Alanine Aminotransferase 29 U/L (0-33); Albumin Level 4.2 g/dL (3.5-5.2); Alkaline Phosphatase 71 U/L (35-105); Aspartate Amino Transferase 22 U/L (0-32); C Reactive Protein 4.1 mg/L (0.0-4.9); Globulin 2.3 g/dL (1.3-4.6); Glomerular Filtration Rate 93.2 mL/min (90-130); Total Bilirubin 0.4 mg/dL (0.15-1.2); Total Protein 6.5 g/dL (6.6-8.7)
== END 2025-01-15 11:45 | disposition home or self-care (01) ==
PROVIDERS: PCP Nurse Practitioner; Visit Provider Internal Medicine Rheumatology
DX: Z79.899 Other long term (current) drug therapy (principal); M06.00 Rheumatoid arthritis without rheumatoid factor, unspecified site
CPT/HCPCS: 36415; 80076; 82565; 85025; 85651; 86140

== ENCOUNTER 2025-02-16 16:27 | Outpatient (CLI) | payer BC, MEDICAID, SELFPAY ==
[2025-02-16 16:49] LABS: Basophils # 0.1 10^3/uL (0.0-0.1); Basophils % 0.7 %; Eosinophils # 0.3 10^3/uL (0.0-0.8); Eosinophils % 4.5 %; Hematocrit 41.6 % (36-47); Lymphocytes # 2.4 10^3/uL (0.8-4.8); Lymphocytes % 32.9 %; Mean Corpuscular HGB Conc 32.5 g/dL (30-55); Mean Corpuscular Hemoglobin 29.2 pg (27-33); Mean Corpuscular Volume 89.8 fl (85-98); Mean Platelet Volume 9.9 fL (7.4-10.4); Monocytes # 0.7 10^3/uL (0.2-0.9); Neutrophils # 3.77 10^3/uL (1.8-7.7); Neutrophils % 51.5 %; Nucleated Red Blood Cells % 0 %; Platelet Count 272 10^3/cmm (157-399); Red Blood Count 4.63 10^6/uL (3.85-5.65); Red Cell Distribution Width 13.2 % (12.1-15.1); White Blood Count 7.32 10^3/uL (3.29-11.43)
[2025-02-16 16:59] LABS: Erythrocyte Sedimentation Rate < 1 mm/hr (0-15)
[2025-02-16 17:11] LABS: Alanine Aminotransferase 23 U/L (0-33); Albumin Level 4.2 g/dL (3.5-5.2); Alkaline Phosphatase 75 U/L (35-105); Aspartate Amino Transferase 20 U/L (0-32); Globulin 2.6 g/dL (1.3-4.6); Glomerular Filtration Rate 111.3 mL/min (90-130); Total Bilirubin 0.3 mg/dL (0.15-1.2); Total Protein 6.8 g/dL (6.6-8.7)
[2025-02-16 17:27] LABS: 25 Hydroxy Vitamin D 33 ng/mL (30-100)
== END 2025-02-16 16:28 | disposition home or self-care (01) ==
LOC: LAB 16:30
PROVIDERS: PCP Clinical Nurse Specialist Adult Health; Visit Provider Internal Medicine Rheumatology
DX: E55.9 Vitamin D deficiency, unspecified (principal); Z79.899 Other long term (current) drug therapy
CPT/HCPCS: 80076; 82306; 82565; 85025; 85651; 86140

== ENCOUNTER → 2025-05-04 15:19 | Outpatient (BNVA) | payer BC, MEDICAID, SELFPAY | PROVIDERS: PCP Clinical Nurse Specialist Adult Health; Visit Provider Internal Medicine Rheumatology | DX: Z79.899 Other long term (current) drug therapy (principal) | CPT/HCPCS: 36415; 80076; 82565; 85025; 85651; 86140 ==

== ENCOUNTER → 2025-06-02 10:45 | Outpatient (BNVA) | payer BC, MEDICAID, SELFPAY | PROVIDERS: PCP Clinical Nurse Specialist Adult Health; Visit Provider Clinical Nurse Specialist Adult Health | DX: Z79.899 Other long term (current) drug therapy (principal); E55.9 Vitamin D deficiency, unspecified | CPT/HCPCS: 80076; 82306; 82565; 85025; 85651; 86140 ==

== ENCOUNTER → 2025-09-23 15:54 | Outpatient (BNVA) | payer BC, SELFPAY | PROVIDERS: PCP Clinical Nurse Specialist Adult Health; Visit Provider Internal Medicine Rheumatology | DX: M06.00 Rheumatoid arthritis without rheumatoid factor, unspecified site (principal); Z79.899 Other long term (current) drug therapy | CPT/HCPCS: 36415; 80076; 82565; 85025; 85651; 86140 ==